=== PATIENT | female | born 1970 | race Two or more races ===

== ENCOUNTER 2018-08-19 22:44 | Emergency (ER) | payer SELFPAY | END 2018-08-19 23:18 | disposition left against medical advice (07) | LOC: ER 23:02 | DX: M54.9 Dorsalgia, unspecified (principal); Z53.21 Procedure and treatment not carried out due to patient leaving prior to being seen by health care provider ==

== ENCOUNTER 2022-08-05 16:31 | Inpatient (IN) | payer OTHER ==
[~2022-08-05] VITALS: Ht 162.6 cm; Wt 69.7 kg
[2022-08-05 17:30] LABS: Basophils # (auto) 0 10 ^3/uL (0-0.2); Eosinophils # (auto) 0 10 ^3/uL (0-0.8)
[2022-08-05 17:32] LABS: Basophils % (auto) 0.1 % (0.0-2.0); Eosinophils % (auto) 0.1 % (0.0-7.0); Hematocrit 32.1 % (36.0-46.0); Hemoglobin 9.7 g/dL (12.2-16.2); Lymphocytes # (auto) 0.9 10 ^3/uL (0.4-5.4); Lymphocytes % (auto) 5.5 % (10.0-50.0); Mean Corpuscular Hemoglobin 19.3 pg (28.0-32.0); Mean Corpuscular Hgb Conc. 30.3 g/dL (32.0-36.0); Mean Corpuscular Volume 63.8 fL (80.0-100.0); Monocytes # (auto) 0.5 10 ^3/uL (0-1.3); Monocytes % (auto) 3.4 % (0.0-12.0); Neutrophils # (auto) 14.7 10 ^3/uL (1.6-8.6); Neutrophils % (auto) 90.9 % (37.0-80.0); Red Blood Cells 5.04 10^6/uL (4.0-5.20); White Blood Cell 16.1 10^3/uL (4.4-10.8)
[2022-08-05 17:43] LABS: Red Cell Distribution Width 23.9 % (11.8-14.3)
[2022-08-05 17:47] LABS: Albumin 1.8 g/dL (3.4-5.0); Potassium 3.6 mmol/L (3.5-5.1)
[2022-08-05 17:51] LABS: Bilirubin, Total 0.5 mg/dL (0.2-1.0); Total Protein 7.7 g/dL (6.4-8.2)
[2022-08-05] MEDS ORDERED: LACTATED RINGER'S 2,300 ML IV ONE (20:00)
[2022-08-05] MEDS ORDERED: PIPERACILLIN-TAZO 4.5GM 100 ML IV ONE (20:15)
[2022-08-05] MEDS ORDERED: VANCOMYCIN 1GM/250ML 250 ML IV ONE (20:45)
[2022-08-05 23:02] LABS: Blood Alcohol < 3.0 mg/dL (0-5); Lipase 96 U/L (73-393)
[2022-08-06] MEDS ORDERED: InsuLIN R (HUMAN) 100 UNITS in SODIUM CHL 0.9% 99 ML IV SCH (01:45)
[2022-08-06] MEDS ORDERED: DEXTROSE (50%) 50ML SYRG IV PRN ×3 (01:45→15:15)
[2022-08-06] MEDS ORDERED: INSULIN LANTUS (GLARGINE) 1 /0.01ml (100units/ml) SC ONE (01:45)
[2022-08-06 01:59] LABS: Basophils # (auto) 0 10 ^3/uL (0-0.2); Basophils % (auto) 0.1 % (0.0-2.0); Eosinophils # (auto) 0 10 ^3/uL (0-0.8); Hemoglobin 8.6 g/dL (12.2-16.2); Lymphocytes # (auto) 0.7 10 ^3/uL (0.4-5.4); Lymphocytes % (auto) 5.4 % (10.0-50.0); Monocytes # (auto) 0.8 10 ^3/uL (0-1.3); Neutrophils # (auto) 12.1 10 ^3/uL (1.6-8.6); Nucleated Red Blood Cells % 0.1 %; White Blood Cell 13.7 10^3/uL (4.4-10.8)
[2022-08-06 02:01] LABS: Hematocrit 28.4 % (36.0-46.0); Mean Corpuscular Hemoglobin 19.3 pg (28.0-32.0); Mean Corpuscular Hgb Conc. 30.2 g/dL (32.0-36.0); Monocytes % (auto) 6.1 % (0.0-12.0); Neutrophils % (auto) 88.4 % (37.0-80.0); Red Blood Cells 4.43 10^6/uL (4.0-5.20)
[2022-08-06] MEDS ORDERED: D5W/SOD CHLO 0.9% 1,000 ML IV ONE (02:15)
[2022-08-06 02:17] LABS: Calcium 9.5 mg/dL (8.5-10.1); Magnesium 2.2 mg/dL (1.6-2.6); Potassium 3.3 mmol/L (3.5-5.1)
[2022-08-06 02:20] LABS: BUN/Creatinine Ratio 39.1; Phosphorus 3.7 mg/dL (2.5-4.90)
[2022-08-06 02:28] LABS: Red Cell Distribution Width 23.6 % (11.8-14.3)
[2022-08-06] MEDS ORDERED: InsuLIN REG 1unit/0.01ml Soln (100units/ml) IV ONE (02:30)
[2022-08-06] MEDS ORDERED: ACETAMINOPHEN 325 MG TAB PO PRN (03:00)
[2022-08-06] MEDS ORDERED: ACCU-CHEK COMFORT CURVE STRIP VI SCH (03:00)
[2022-08-06] MEDS ORDERED: DOCUSATE SOD 100 MG CAP PO PRN (03:00)
[2022-08-06] MEDS ORDERED: ONDANSETRON HCL 4 MG/2 ML VIAL IV PRN (03:00)
[2022-08-06] MEDS: ACCU-CHEK COMFORT CURVE STRIP VI SCH ×8 (04:03→21:58)
[2022-08-06] MEDS: InsuLIN REG 1unit/0.01ml Soln (100units/ml) SC SCH ×8 (04:03→22:16)
[2022-08-06] MEDS: SODIUM CHLORIDE 0.9% 1,000 ML IV SCH ×4 (04:05→14:59)
[2022-08-06] MEDS: POTASSIUM CHL 20MEQ/100ML 100 ML IV SCH ×2 (04:06→05:45)
[2022-08-06] MEDS ORDERED: NITROGLYCERIN 0.4 MG SL TAB SL PRN (04:45)
[2022-08-06] MEDS: MORPHINE SULFATE INJ 2 MG/ml SYRG IV PRN ×2 (04:45→21:57)
[2022-08-06] MEDS ORDERED: MORPHINE SULFATE INJ 2 MG/ml SYRG IV PRN (04:45)
[2022-08-06] MEDS: HYDROcodone-ACET 5/325MG TAB PO PRN (05:35)
[2022-08-06 05:39] LABS: Basophils # (auto) 0 10 ^3/uL (0-0.2); Eosinophils # (auto) 0 10 ^3/uL (0-0.8); Hematocrit 28.6 % (36.0-46.0); Monocytes # (auto) 0.6 10 ^3/uL (0-1.3); Monocytes % (auto) 4.2 % (0.0-12.0); Neutrophils # (auto) 13.4 10 ^3/uL (1.6-8.6); White Blood Cell 14.7 10^3/uL (4.4-10.8)
[2022-08-06] MEDS ORDERED: SODIUM CHLORIDE 0.9% 1,000 ML IV SCH (05:45)
[2022-08-06 05:52] LABS: Albumin 1.7 g/dL (3.4-5.0); Calcium 9.1 mg/dL (8.5-10.1); Potassium 3.2 mmol/L (3.5-5.1)
[2022-08-06 05:55] LABS: BUN/Creatinine Ratio 41.2
[2022-08-06 05:58] LABS: Bilirubin, Total 0.4 mg/dL (0.2-1.0)
[2022-08-06 06:02] LABS: Hemoglobin 8.8 g/dL (12.2-16.2); Lymphocytes # (auto) 0.7 10 ^3/uL (0.4-5.4); Lymphocytes % (auto) 4.5 % (10.0-50.0); Mean Corpuscular Hemoglobin 19.5 pg (28.0-32.0); Mean Corpuscular Hgb Conc. 30.9 g/dL (32.0-36.0); Neutrophils % (auto) 91.3 % (37.0-80.0); Red Blood Cells 4.54 10^6/uL (4.0-5.20); Red Cell Distribution Width 22.8 % (11.8-14.3)
[2022-08-06] MEDS: hydrALAZINE HCL 10 MG TAB PO SCH ×3 (06:08→21:57)
[2022-08-06] MEDS ORDERED: VANCOMYCIN PER PHARMACY 0 MG IV SCH (07:45)
[2022-08-06 08:24] LABS: Calcium 9.7 mg/dL (8.5-10.1); Potassium 3.1 mmol/L (3.5-5.1)
[2022-08-06 08:26] LABS: BUN/Creatinine Ratio 39.1
[2022-08-06] MEDS ORDERED: HEPARIN SODIUM (PORCINE) 5000 UNITS/ML 1ML VIAL SC SCH (10:00)
[2022-08-06] MEDS ORDERED: FAMOTIDINE (10MG/ML) 2ML VL IV SCH (10:00)
[2022-08-06] MEDS: METOPROLOL TARTRATE 25 MG TAB PO SCH ×2 (10:33→20:33)
[2022-08-06] MEDS: cefTRIAXone 1GM/50ML D5W 50 ML IV SCH (10:34)
[2022-08-06] MEDS: ALBUMIN 25% 100 ML IV SCH ×2 (10:35→13:22)
[2022-08-06 13:01] LABS: Alcohol, Urine < 3.0 mg/dL (0-10); Amphetamine Screen, Urine NEGATIVE (NEGATIVE); Barbiturate Scree,Urine NEGATIVE (NEGATIVE); Cannabinoid Screen, Urine POSITIVE (NEGATIVE)
[2022-08-06 13:04] LABS: Protein, Urine 189.9 mg/dL (0.0-11.9)
[2022-08-06 13:12] LABS: Benzodiazephine Screen, Urine NEGATIVE (NEGATIVE); Cocaine Screen, Urine NEGATIVE (NEGATIVE); Opiate Scree,Urine NEGATIVE (NEGATIVE); Phencyclidine Screen, Urine NEGATIVE (NEGATIVE)
[2022-08-06] MEDS ORDERED: ALBUMIN 25% 100 ML IV SCH (14:00)
[2022-08-06 14:04] LABS: BUN/Creatinine Ratio 45.6; Calcium 9.7 mg/dL (8.5-10.1)
[2022-08-06 14:26] LABS: Potassium 2.9 mmol/L (3.5-5.1)
[2022-08-06] MEDS: POTASSIUM EFFERVESENT TAB 25 MEQ PO SCH ×3 (15:04→21:57)
[2022-08-06 15:10] LABS: Urine Bacteria NONE SEEN /hpf (None Seen); Urine Blood TRACE /uL (Negative); Urine Specific Gravity 1.019 (1.001-1.035); Urine WBC 7 /hpf (0 - 5)
[2022-08-06] MEDS ORDERED: VANCOMYCIN 1GM/250ML 250 ML IV SCH (17:00)
[2022-08-06] MEDS ORDERED: InsuLIN REG 1unit/0.01ml Soln (100units/ml) SC SCH (17:00)
[2022-08-06 20:30] LABS: Calcium 9.8 mg/dL (8.5-10.1); Potassium 3.3 mmol/L (3.5-5.1)
[2022-08-06] MEDS: SOD CHL 0.45% 1,000 ML IV SCH (21:48)
[2022-08-07] MEDS ORDERED: LABETALOL HCL 5 MG/ML 4ML SYRINGE IV ONE (02:15)
[2022-08-07 05:50] VITALS: BP 140/79
[2022-08-07] MEDS: SOD CHL 0.45% 1,000 ML IV SCH ×2 (06:23→21:17)
[2022-08-07] MEDS: ACCU-CHEK COMFORT CURVE STRIP VI SCH ×4 (06:24→22:26)
[2022-08-07] MEDS: hydrALAZINE HCL 10 MG TAB PO SCH ×3 (06:26→22:25)
[2022-08-07] MEDS: InsuLIN REG 1unit/0.01ml Soln (100units/ml) SC SCH ×4 (06:29→22:27)
[2022-08-07 06:40] VITALS: BP 140/79
[2022-08-07 06:44] LABS: Calcium 9.1 mg/dL (8.5-10.1); Potassium 3.7 mmol/L (3.5-5.1)
[2022-08-07 06:47] LABS: Albumin 2.1 g/dL (3.4-5.0); BUN/Creatinine Ratio 34.5; Magnesium 2.1 mg/dL (1.6-2.6)
[2022-08-07 06:49] LABS: Eosinophils # (auto) 0 10 ^3/uL (0-0.8); Lymphocytes # (auto) 0.9 10 ^3/uL (0.4-5.4)
[2022-08-07 06:52] LABS: Basophils # (auto) 0 10 ^3/uL (0-0.2); Basophils % (auto) 0.1 % (0.0-2.0); Eosinophils % (auto) 0.2 % (0.0-7.0); Hematocrit 26.5 % (36.0-46.0); Lymphocytes % (auto) 6.7 % (10.0-50.0); Mean Corpuscular Hemoglobin 19.2 pg (28.0-32.0); Mean Corpuscular Hgb Conc. 30.3 g/dL (32.0-36.0); Mean Corpuscular Volume 63.4 fL (80.0-100.0); Monocytes # (auto) 0.9 10 ^3/uL (0-1.3); Monocytes % (auto) 6.6 % (0.0-12.0); Neutrophils # (auto) 11.2 10 ^3/uL (1.6-8.6); Neutrophils % (auto) 86.4 % (37.0-80.0); Red Blood Cells 4.18 10^6/uL (4.0-5.20)
[2022-08-07 06:54] LABS: Bilirubin, Total 0.6 mg/dL (0.2-1.0); Phosphorus 2.1 mg/dL (2.5-4.90); Total Protein 6.1 g/dL (6.4-8.2)
[2022-08-07 06:55] LABS: Red Cell Distribution Width 23.3 % (11.8-14.3)
[2022-08-07 07:04] LABS: % Iron Saturation 13.4 % (15-50)
[2022-08-07 07:34] LABS: Ferritin 107.5 ng/mL (10-322)
[2022-08-07] MEDS: cefTRIAXone 1GM/50ML D5W 50 ML IV SCH (08:30)
[2022-08-07] MEDS: METOPROLOL TARTRATE 25 MG TAB PO SCH ×2 (08:30→22:25)
[2022-08-07 09:00] VITALS: BP 171/100
[2022-08-07] MEDS ORDERED: INSULIN LANTUS (GLARGINE) 1 /0.01ml (100units/ml) SC SCH ×2 (10:00)
[2022-08-07 13:00] VITALS: BP 170/89
[2022-08-07 17:00] VITALS: BP 167/92
[2022-08-07 17:14] LABS: Urine Bacteria FEW /hpf (None Seen); Urine Blood 2+ /uL (Negative); Urine Mucus FEW (None Seen); Urine Specific Gravity 1.019 (1.001-1.035); Urine WBC 9 /hpf (0 - 5)
[2022-08-07 22:00] VITALS: BP 164/96
[2022-08-07] MEDS ORDERED: dilTIAZem 25 MG/5 ML VIAL IV ONE (22:30)
[2022-08-08] MEDS: MORPHINE SULFATE INJ 2 MG/ml SYRG IV PRN ×3 (00:55→21:57)
[2022-08-08 05:00] VITALS: BP 154/59
[2022-08-08 06:12] LABS: Basophils # (auto) 0 10 ^3/uL (0-0.2); Basophils % (auto) 0.1 % (0.0-2.0); Eosinophils # (auto) 0 10 ^3/uL (0-0.8); Hemoglobin 8.6 g/dL (12.2-16.2); Monocytes # (auto) 0.8 10 ^3/uL (0-1.3)
[2022-08-08 06:14] LABS: Eosinophils % (auto) 0.3 % (0.0-7.0); Hematocrit 27.8 % (36.0-46.0); Lymphocytes % (auto) 6.9 % (10.0-50.0); Mean Corpuscular Hemoglobin 19.4 pg (28.0-32.0); Mean Corpuscular Hgb Conc. 30.9 g/dL (32.0-36.0); Mean Corpuscular Volume 62.8 fL (80.0-100.0); Monocytes % (auto) 5.3 % (0.0-12.0); Neutrophils % (auto) 87.4 % (37.0-80.0); Red Blood Cells 4.43 10^6/uL (4.0-5.20); White Blood Cell 14.8 10^3/uL (4.4-10.8)
[2022-08-08] MEDS: hydrALAZINE HCL 10 MG TAB PO SCH (06:26)
[2022-08-08] MEDS: ACCU-CHEK COMFORT CURVE STRIP VI SCH ×4 (06:26→22:37)
[2022-08-08] MEDS: InsuLIN REG 1unit/0.01ml Soln (100units/ml) SC SCH ×3 (06:27→17:41)
[2022-08-08 06:34] LABS: Potassium 4.1 mmol/L (3.5-5.1)
[2022-08-08 06:42] LABS: Albumin 1.8 g/dL (3.4-5.0); BUN/Creatinine Ratio 34.2; Calcium 8.7 mg/dL (8.5-10.1)
[2022-08-08 06:45] LABS: Bilirubin, Total 0.4 mg/dL (0.2-1.0); Phosphorus 2.5 mg/dL (2.5-4.90); Total Protein 5.3 g/dL (6.4-8.2)
[2022-08-08] MEDS: cefTRIAXone 1GM/50ML D5W 50 ML IV SCH (08:16)
[2022-08-08] MEDS: METOPROLOL TARTRATE 25 MG TAB PO SCH (08:16)
[2022-08-08 09:00] VITALS: BP 155/90
[2022-08-08] MEDS ORDERED: INSULIN LANTUS (GLARGINE) 1 /0.01ml (100units/ml) SC SCH (10:00)
[2022-08-08] MEDS ORDERED: amLODIPine BESYLATE 5 MG TAB PO ONE (11:30)
[2022-08-08] MEDS ORDERED: PIPERACILLIN-TAZOB 3.375GM 100 ML IV SCH (12:00)
[2022-08-08] MEDS: SOD CHL 0.45% 1,000 ML IV SCH ×2 (12:03→22:20)
[2022-08-08 13:00] VITALS: BP 148/80
[2022-08-08] MEDS: HYDROcodone-ACET 5/325MG TAB PO PRN (14:20)
[2022-08-08 16:46] VITALS: BP 126/83
[2022-08-08 20:10] VITALS: BP 146/80
[2022-08-08] MEDS: PIPERACILLIN-TAZOB 3.375GM 100 ML IV SCH (21:56)
[2022-08-08 22:00] VITALS: BP 146/80
[2022-08-09] MEDS: MORPHINE SULFATE INJ 2 MG/ml SYRG IV PRN ×3 (02:20→13:14)
[2022-08-09] MEDS: PIPERACILLIN-TAZOB 3.375GM 100 ML IV SCH ×4 (04:56→20:00)
[2022-08-09 06:00] VITALS: BP 160/89
[2022-08-09] MEDS: ACCU-CHEK COMFORT CURVE STRIP VI SCH ×3 (06:18→18:51)
[2022-08-09] MEDS: InsuLIN REG 1unit/0.01ml Soln (100units/ml) SC SCH ×3 (06:19→18:51)
[2022-08-09 08:00] VITALS: BP 156/78
[2022-08-09 08:02] LABS: Basophils # (auto) 0 10 ^3/uL (0-0.2); Eosinophils # (auto) 0.1 10 ^3/uL (0-0.8); Hemoglobin 8.3 g/dL (12.2-16.2); Monocytes # (auto) 0.6 10 ^3/uL (0-1.3)
[2022-08-09 08:04] LABS: Basophils % (auto) 0.3 % (0.0-2.0); Eosinophils % (auto) 0.5 % (0.0-7.0); Hematocrit 26.3 % (36.0-46.0); Lymphocytes % (auto) 6.7 % (10.0-50.0); Mean Corpuscular Hemoglobin 19.9 pg (28.0-32.0); Mean Corpuscular Hgb Conc. 31.7 g/dL (32.0-36.0); Mean Corpuscular Volume 62.9 fL (80.0-100.0); Monocytes % (auto) 3.7 % (0.0-12.0); Neutrophils # (auto) 13.6 10 ^3/uL (1.6-8.6); Neutrophils % (auto) 88.8 % (37.0-80.0); Red Blood Cells 4.17 10^6/uL (4.0-5.20); White Blood Cell 15.3 10^3/uL (4.4-10.8)
[2022-08-09 08:07] LABS: Albumin 1.6 g/dL (3.4-5.0); Calcium 8.3 mg/dL (8.5-10.1); Potassium 3.5 mmol/L (3.5-5.1); Red Cell Distribution Width 22.7 % (11.8-14.3)
[2022-08-09 08:11] LABS: BUN/Creatinine Ratio 28.9; Bilirubin, Total 0.4 mg/dL (0.2-1.0); Total Protein 5.6 g/dL (6.4-8.2)
[2022-08-09] MEDS: amLODIPine BESYLATE 5 MG TAB PO SCH (09:18)
[2022-08-09 09:37] VITALS: BP 156/78
[2022-08-09] MEDS ORDERED: INSULIN LANTUS (GLARGINE) 1 /0.01ml (100units/ml) SC SCH (10:00)
[2022-08-09] MEDS ORDERED: SOD CHL 0.45% 1,000 ML IV SCH (11:00)
[2022-08-09 13:00] VITALS: BP 139/68
[2022-08-09 17:00] VITALS: BP 128/67
[2022-08-09] MEDS ORDERED: MIDAZOLAM HCL 2MG/2ML 2ml VIAL (1mg/ml) ONE (19:18)
[2022-08-09] MEDS ORDERED: fentaNYL CITRATE 100 MCG/2 ML VL ONE ×3 (19:18→23:25)
[2022-08-09] MEDS ORDERED: HYDROmorphone HCL 2 MG/ML VL/or syr ONE (19:18)
[2022-08-09] MEDS ORDERED: DexAMETHasone SOD PHOS 10MG/1ML VIAL INJ ONE (19:19)
[2022-08-09] MEDS ORDERED: GLYCOPYRROLATE 0.2 MG/ML 1ML VIAL ONE (19:19)
[2022-08-09] MEDS ORDERED: ONDANSETRON HCL 4 MG/2 ML VIAL ONE (19:19)
[2022-08-09] MEDS ORDERED: ePHEDrine SULFATE 50 MG/ML AMP ONE (19:19)
[2022-08-09] MEDS ORDERED: LIDOCAINE 2% (LOCAL ANESTH.) PF 5ml SDV ONE (19:19)
[2022-08-09] MEDS ORDERED: PROPOFOL 10 MG/ML 20 ML IV ONE ×3 (19:19→22:14)
[2022-08-09] MEDS: VANCOMYCIN HCL 1000 MG VL ONE ×2 (20:00→21:15)
[2022-08-09] MEDS: GENTAMICIN SULF 80 MG/2 ML VIAL ONE ×2 (20:00→21:15)
[2022-08-09] MEDS ORDERED: ROCURONIUM 10MG/ML 10ML VIAL IV ONE (20:47)
[2022-08-09] MEDS ORDERED: ceFAZolin 1GM VL ONE (20:56)
[2022-08-09] MEDS ORDERED: MINERAL OIL TOPICAL 10ml TOP ONE (21:37)
[2022-08-09] MEDS ORDERED: SUGAMMADEX 200mg/2ml Vial (100MG/ML) IV ONE ×2 (23:05→23:25)
[2022-08-09] MEDS ORDERED: MILK OF MAGNESIA 30ML SUSP PO PRN (23:15)
[2022-08-09] MEDS ORDERED: NITROGLYCERIN 0.4 MG SL TAB SL PRN (23:15)
[2022-08-09] MEDS ORDERED: DOCUSATE SOD 100 MG CAP PO PRN (23:15)
[2022-08-09] MEDS ORDERED: DexAMETHasone SOD PHOS 10MG/1ML VIAL INJ IV ONE (23:15)
[2022-08-10] VITALS (23 sets, daily range): BP systolic 119–159; BP diastolic 73–82
[2022-08-10] MEDS ORDERED: InsuLIN REG 1unit/0.01ml Soln (100units/ml) ONE (00:08)
[2022-08-10] MEDS ORDERED: InsuLIN REG 1unit/0.01ml Soln (100units/ml) SC ONE ×2 (00:09→00:15)
[2022-08-10] MEDS ORDERED: ONDANSETRON HCL 4 MG/2 ML VIAL IV PRN (00:15)
[2022-08-10] MEDS ORDERED: ACCU-CHEK COMFORT CURVE STRIP VI ONE (00:15)
[2022-08-10] MEDS ORDERED: HYDROmorphone HCL 2 MG/ML VL/or syr IV PRN (00:15)
[2022-08-10] MEDS: PIPERACILLIN-TAZOB 3.375GM 100 ML IV SCH ×2 (02:00→08:32)
[2022-08-10] MEDS: LACTATED RINGER'S 1,000 ML IV SCH ×2 (02:45→06:26)
[2022-08-10] MEDS: HYDROcodone-ACET 5/325MG TAB PO PRN ×3 (03:16→13:50)
[2022-08-10] MEDS: ACCU-CHEK COMFORT CURVE STRIP VI SCH ×6 (04:25→20:00)
[2022-08-10] MEDS: InsuLIN REG 1unit/0.01ml Soln (100units/ml) SC SCH ×5 (04:26→21:06)
[2022-08-10] MEDS: CYCLOBENZAPRINE HCL 10 MG TAB PO SCH ×3 (05:06→21:06)
[2022-08-10 06:44] LABS: Albumin 1.5 g/dL (3.4-5.0); Calcium 7.7 mg/dL (8.5-10.1); Potassium 4.5 mmol/L (3.5-5.1)
[2022-08-10 06:47] LABS: BUN/Creatinine Ratio 27.4; Bilirubin, Total 0.3 mg/dL (0.2-1.0); Total Protein 4.7 g/dL (6.4-8.2)
[2022-08-10 06:49] LABS: Basophils # (auto) 0 10 ^3/uL (0-0.2); Eosinophils # (auto) 0 10 ^3/uL (0-0.8); Hemoglobin 12.8 g/dL (12.2-16.2); Monocytes # (auto) 0.3 10 ^3/uL (0-1.3); Monocytes % (auto) 1.8 % (0.0-12.0)
[2022-08-10 06:52] LABS: Basophils % (auto) 0.1 % (0.0-2.0); Hematocrit 39.2 % (36.0-46.0); Lymphocytes # (auto) 0.4 10 ^3/uL (0.4-5.4); Lymphocytes % (auto) 2.6 % (10.0-50.0); Mean Corpuscular Hemoglobin 25.1 pg (28.0-32.0); Mean Corpuscular Hgb Conc. 32.7 g/dL (32.0-36.0); Mean Corpuscular Volume 76.8 fL (80.0-100.0); Neutrophils # (auto) 14.1 10 ^3/uL (1.6-8.6); Neutrophils % (auto) 95.5 % (37.0-80.0); White Blood Cell 14.8 10^3/uL (4.4-10.8)
[2022-08-10 07:34] LABS: Red Cell Distribution Width 28.5 % (11.8-14.3)
[2022-08-10] MEDS: amLODIPine BESYLATE 5 MG TAB PO SCH (09:53)
[2022-08-10] MEDS: DOCUSATE SOD 100 MG CAP PO SCH ×2 (09:53→21:07)
[2022-08-10] MEDS: INSULIN LANTUS (GLARGINE) 1 /0.01ml (100units/ml) SC SCH (09:54)
[2022-08-10] MEDS: CEFTRIAXONE SODIUM 2 GM in D5W 5% 50 ML IV SCH (10:45)
[2022-08-10] MEDS ORDERED: VANCOMYCIN PER PHARMACY 0 MG IV SCH (10:45)
[2022-08-10] MEDS ORDERED: VANCOMYCIN 1GM/250ML 250 ML IV ONE (11:15)
[2022-08-10] MEDS: MORPHINE SULFATE INJ 2 MG/ml SYRG IV PRN ×3 (12:58→23:26)
[2022-08-10] MEDS ORDERED: LABETALOL HCL 200 MG TAB PO PRN (16:00)
[2022-08-10] MEDS: Pro-Stat SF 30ml Vanilla PO SCH (18:00)
[2022-08-11] MEDS: ACCU-CHEK COMFORT CURVE STRIP VI SCH ×6 (00:06→20:09)
[2022-08-11] MEDS: InsuLIN REG 1unit/0.01ml Soln (100units/ml) SC SCH ×7 (00:07→23:21)
[2022-08-11] MEDS: LACTATED RINGER'S 1,000 ML IV SCH ×3 (00:25→18:19)
[2022-08-11] MEDS: MORPHINE SULFATE INJ 2 MG/ml SYRG IV PRN ×4 (03:34→20:18)
[2022-08-11] MEDS: HYDROcodone-ACET 5/325MG TAB PO PRN ×4 (04:54→22:47)
[2022-08-11] MEDS: VANCOMYCIN 1GM/250ML 250 ML IV SCH ×2 (04:56→19:57)
[2022-08-11 05:00] VITALS: BP 148/85
[2022-08-11] MEDS: CYCLOBENZAPRINE HCL 10 MG TAB PO SCH ×3 (05:01→22:43)
[2022-08-11 06:31] LABS: Basophils # (auto) 0 10 ^3/uL (0-0.2); Basophils % (auto) 0.3 % (0.0-2.0); Eosinophils # (auto) 0 10 ^3/uL (0-0.8); Hemoglobin 12.2 g/dL (12.2-16.2); Monocytes # (auto) 0.7 10 ^3/uL (0-1.3); Red Blood Cells 4.86 10^6/uL (4.0-5.20)
[2022-08-11 06:32] LABS: Eosinophils % (auto) 0.4 % (0.0-7.0); Hematocrit 36.6 % (36.0-46.0); Lymphocytes # (auto) 1.1 10 ^3/uL (0.4-5.4); Lymphocytes % (auto) 8.3 % (10.0-50.0); Mean Corpuscular Hgb Conc. 33.2 g/dL (32.0-36.0); Mean Corpuscular Volume 75.3 fL (80.0-100.0); Monocytes % (auto) 5.5 % (0.0-12.0); Neutrophils # (auto) 10.9 10 ^3/uL (1.6-8.6); Neutrophils % (auto) 85.5 % (37.0-80.0); White Blood Cell 12.7 10^3/uL (4.4-10.8)
[2022-08-11 06:44] LABS: Red Cell Distribution Width 28.1 % (11.8-14.3)
[2022-08-11 06:58] LABS: Calcium 8.6 mg/dL (8.5-10.1); Potassium 3.8 mmol/L (3.5-5.1)
[2022-08-11 07:01] LABS: Albumin 1.4 g/dL (3.4-5.0); BUN/Creatinine Ratio 31.7
[2022-08-11 07:04] LABS: Bilirubin, Total 0.3 mg/dL (0.2-1.0); Total Protein 5.1 g/dL (6.4-8.2)
[2022-08-11 08:30] VITALS: BP 141/78
[2022-08-11] MEDS: Pro-Stat SF 30ml Vanilla PO SCH ×2 (08:41→17:41)
[2022-08-11] MEDS: amLODIPine BESYLATE 5 MG TAB PO SCH (09:35)
[2022-08-11] MEDS: DOCUSATE SOD 100 MG CAP PO SCH ×2 (09:35→22:43)
[2022-08-11] MEDS: INSULIN LANTUS (GLARGINE) 1 /0.01ml (100units/ml) SC SCH (09:36)
[2022-08-11] MEDS: CEFTRIAXONE SODIUM 2 GM in D5W 5% 50 ML IV SCH (11:15)
[2022-08-11 12:49] VITALS: BP 147/81
[2022-08-11 17:00] VITALS: BP 143/90
[2022-08-11 22:04] VITALS: BP 137/82
[2022-08-12] MEDS: ACCU-CHEK COMFORT CURVE STRIP VI SCH ×6 (00:27→20:50)
[2022-08-12] MEDS: MORPHINE SULFATE INJ 2 MG/ml SYRG IV PRN ×6 (02:35→20:44)
[2022-08-12] MEDS: LACTATED RINGER'S 1,000 ML IV SCH ×2 (03:43→15:41)
[2022-08-12] MEDS: InsuLIN REG 1unit/0.01ml Soln (100units/ml) SC SCH ×5 (03:55→20:52)
[2022-08-12 04:56] LABS: Basophils # (auto) 0 10 ^3/uL (0-0.2); Eosinophils # (auto) 0.1 10 ^3/uL (0-0.8); Monocytes # (auto) 0.7 10 ^3/uL (0-1.3); White Blood Cell 10.6 10^3/uL (4.4-10.8)
[2022-08-12 04:58] LABS: Basophils % (auto) 0.4 % (0.0-2.0); Eosinophils % (auto) 0.7 % (0.0-7.0); Hematocrit 35.2 % (36.0-46.0); Hemoglobin 12.1 g/dL (12.2-16.2); Lymphocytes # (auto) 0.9 10 ^3/uL (0.4-5.4); Lymphocytes % (auto) 8.4 % (10.0-50.0); Mean Corpuscular Hgb Conc. 34.4 g/dL (32.0-36.0); Mean Corpuscular Volume 75.6 fL (80.0-100.0); Monocytes % (auto) 6.4 % (0.0-12.0); Neutrophils # (auto) 8.9 10 ^3/uL (1.6-8.6); Neutrophils % (auto) 84.1 % (37.0-80.0); Red Blood Cells 4.65 10^6/uL (4.0-5.20)
[2022-08-12 05:00] VITALS: BP 141/81
[2022-08-12 05:14] LABS: Red Cell Distribution Width 28.3 % (11.8-14.3)
[2022-08-12 05:19] LABS: Albumin 1.4 g/dL (3.4-5.0); Calcium 8.6 mg/dL (8.5-10.1); Potassium 3.9 mmol/L (3.5-5.1)
[2022-08-12 05:22] LABS: BUN/Creatinine Ratio 29.1; Bilirubin, Total 0.4 mg/dL (0.2-1.0); Total Protein 5.2 g/dL (6.4-8.2)
[2022-08-12] MEDS: CYCLOBENZAPRINE HCL 10 MG TAB PO SCH ×3 (05:51→22:42)
[2022-08-12] MEDS: Pro-Stat SF 30ml Vanilla PO SCH ×2 (08:10→17:52)
[2022-08-12 09:00] VITALS: BP 133/76
[2022-08-12] MEDS: HYDROcodone-ACET 5/325MG TAB PO PRN ×3 (09:03→18:00)
[2022-08-12] MEDS: DOCUSATE SOD 100 MG CAP PO SCH ×2 (10:47→22:42)
[2022-08-12] MEDS: CEFTRIAXONE SODIUM 2 GM in D5W 5% 50 ML IV SCH (10:47)
[2022-08-12] MEDS: amLODIPine BESYLATE 5 MG TAB PO SCH (10:48)
[2022-08-12] MEDS: INSULIN LANTUS (GLARGINE) 1 /0.01ml (100units/ml) SC SCH (11:01)
[2022-08-12] MEDS: VANCOMYCIN 1GM/250ML 250 ML IV SCH (11:58)
[2022-08-13] MEDS: ACCU-CHEK COMFORT CURVE STRIP VI SCH ×6 (00:32→22:34)
[2022-08-13] MEDS: InsuLIN REG 1unit/0.01ml Soln (100units/ml) SC SCH ×6 (00:37→22:33)
[2022-08-13] MEDS: LACTATED RINGER'S 1,000 ML IV SCH (00:45)
[2022-08-13] MEDS: HYDROcodone-ACET 5/325MG TAB PO PRN ×2 (01:18→09:39)
[2022-08-13] MEDS: VANCOMYCIN 1GM/250ML 250 ML IV SCH (01:46)
[2022-08-13 05:00] VITALS: BP 149/86
[2022-08-13] MEDS: CYCLOBENZAPRINE HCL 10 MG TAB PO SCH ×3 (05:52→22:25)
[2022-08-13 06:38] LABS: Basophils # (auto) 0 10 ^3/uL (0-0.2); Basophils % (auto) 0.3 % (0.0-2.0); Mean Corpuscular Hemoglobin 25.9 pg (28.0-32.0); Monocytes % (auto) 5.5 % (0.0-12.0); Nucleated Red Blood Cells % 0.1 %
[2022-08-13] MEDS: MORPHINE SULFATE INJ 2 MG/ml SYRG IV PRN ×2 (06:38→22:35)
[2022-08-13 06:40] LABS: Albumin 1.3 g/dL (3.4-5.0); Calcium 8.6 mg/dL (8.5-10.1); Eosinophils # (auto) 0 10 ^3/uL (0-0.8); Eosinophils % (auto) 0.4 % (0.0-7.0); Hematocrit 33.8 % (36.0-46.0); Hemoglobin 11.6 g/dL (12.2-16.2); Lymphocytes # (auto) 0.9 10 ^3/uL (0.4-5.4); Lymphocytes % (auto) 8.6 % (10.0-50.0); Mean Corpuscular Hgb Conc. 34.2 g/dL (32.0-36.0); Mean Corpuscular Volume 75.7 fL (80.0-100.0); Monocytes # (auto) 0.5 10 ^3/uL (0-1.3); Neutrophils # (auto) 8.5 10 ^3/uL (1.6-8.6); Neutrophils % (auto) 85.2 % (37.0-80.0); Red Blood Cells 4.46 10^6/uL (4.0-5.20)
[2022-08-13 06:44] LABS: BUN/Creatinine Ratio 26.3; Bilirubin, Total 0.4 mg/dL (0.2-1.0)
[2022-08-13 07:10] LABS: Red Cell Distribution Width 28.1 % (11.8-14.3)
[2022-08-13] MEDS: Pro-Stat SF 30ml Vanilla PO SCH ×2 (08:00→18:00)
[2022-08-13 08:36] VITALS: BP 142/77
[2022-08-13] MEDS: INSULIN LANTUS (GLARGINE) 1 /0.01ml (100units/ml) SC SCH (10:30)
[2022-08-13] MEDS: CEFTRIAXONE SODIUM 2 GM in D5W 5% 50 ML IV SCH (10:36)
[2022-08-13] MEDS: amLODIPine BESYLATE 5 MG TAB PO SCH (10:36)
[2022-08-13] MEDS: DOCUSATE SOD 100 MG CAP PO SCH (10:36)
[2022-08-13] MEDS ORDERED: POLYETHYLENE GLYCOL 17 GM PWDR PO PRN (11:00)
[2022-08-13] MEDS ORDERED: SENNA 8.6 MG TAB PO PRN (11:00)
[2022-08-13] MEDS ORDERED: DEXTROSE (50%) 50ML SYRG IV PRN (11:30)
[2022-08-13] MEDS ORDERED: LOSARTAN POTASSIUM 25 MG TAB PO ONE (11:30)
[2022-08-13 13:00] VITALS: BP 132/72
[2022-08-13] MEDS: ACETAMINOPHEN 325 MG TAB PO SCH ×3 (14:00→22:26)
[2022-08-13] MEDS: HYDROmorphone HCL 2 MG TAB PO PRN (14:46)
[2022-08-13] MEDS: NAFCILLIN SOD 2GM 12 GM in SODIUM CHLORIDE 0.9% 1,000 ML IV SCH (15:00)
[2022-08-13 16:36] VITALS: BP 142/86
[2022-08-13 22:00] VITALS: BP 125/59
[2022-08-13] MEDS: SENNA 8.6 MG TAB PO SCH (22:25)
[2022-08-14] MEDS: MORPHINE SULFATE INJ 2 MG/ml SYRG IV PRN ×3 (04:06→20:44)
[2022-08-14 05:00] VITALS: BP 137/75
[2022-08-14] MEDS: HYDROmorphone HCL 2 MG TAB PO PRN ×3 (06:16→16:56)
[2022-08-14] MEDS: ACETAMINOPHEN 325 MG TAB PO SCH ×3 (06:17→22:16)
[2022-08-14] MEDS: CYCLOBENZAPRINE HCL 10 MG TAB PO SCH ×3 (06:17→22:14)
[2022-08-14] MEDS: ACCU-CHEK COMFORT CURVE STRIP VI SCH ×4 (06:18→22:17)
[2022-08-14] MEDS: InsuLIN REG 1unit/0.01ml Soln (100units/ml) SC SCH ×4 (06:18→22:00)
[2022-08-14] MEDS: Pro-Stat SF 30ml Vanilla PO SCH ×2 (08:00→18:00)
[2022-08-14] MEDS: INSULIN LANTUS (GLARGINE) 1 /0.01ml (100units/ml) SC SCH (08:34)
[2022-08-14 09:04] VITALS: BP 132/73
[2022-08-14] MEDS: amLODIPine BESYLATE 5 MG TAB PO SCH (10:35)
[2022-08-14] MEDS: LOSARTAN POTASSIUM 25 MG TAB PO SCH (10:35)
[2022-08-14 12:36] VITALS: BP 138/82
[2022-08-14] MEDS: NAFCILLIN SOD 2GM 12 GM in SODIUM CHLORIDE 0.9% 1,000 ML IV SCH (13:50)
[2022-08-14 16:54] VITALS: BP 146/83
[2022-08-14 22:00] VITALS: BP 148/85
[2022-08-14] MEDS: SENNA 8.6 MG TAB PO SCH (22:15)
[2022-08-15] MEDS: CYCLOBENZAPRINE HCL 10 MG TAB PO SCH ×3 (06:16→21:24)
[2022-08-15] MEDS: ACETAMINOPHEN 325 MG TAB PO SCH (06:18)
[2022-08-15 06:34] LABS: Basophils # (auto) 0 10 ^3/uL (0-0.2); Basophils % (auto) 0.6 % (0.0-2.0); Eosinophils # (auto) 0.1 10 ^3/uL (0-0.8); Lymphocytes # (auto) 0.7 10 ^3/uL (0.4-5.4)
[2022-08-15] MEDS: ACCU-CHEK COMFORT CURVE STRIP VI SCH ×4 (06:35→21:30)
[2022-08-15] MEDS: InsuLIN REG 1unit/0.01ml Soln (100units/ml) SC SCH ×4 (06:35→21:32)
[2022-08-15 06:36] LABS: Eosinophils % (auto) 0.7 % (0.0-7.0); Hematocrit 33.2 % (36.0-46.0); Hemoglobin 11.1 g/dL (12.2-16.2); Lymphocytes % (auto) 9.8 % (10.0-50.0); Mean Corpuscular Hemoglobin 25.4 pg (28.0-32.0); Mean Corpuscular Hgb Conc. 33.5 g/dL (32.0-36.0); Mean Corpuscular Volume 75.7 fL (80.0-100.0); Monocytes # (auto) 0.3 10 ^3/uL (0-1.3); Monocytes % (auto) 4.6 % (0.0-12.0); Neutrophils # (auto) 6.3 10 ^3/uL (1.6-8.6); Neutrophils % (auto) 84.3 % (37.0-80.0); Red Blood Cells 4.39 10^6/uL (4.0-5.20); White Blood Cell 7.4 10^3/uL (4.4-10.8)
[2022-08-15 06:38] LABS: Red Cell Distribution Width 28.4 % (11.8-14.3)
[2022-08-15 06:53] LABS: Albumin 1.5 g/dL (3.4-5.0); Calcium 8.9 mg/dL (8.5-10.1)
[2022-08-15 06:56] LABS: Bilirubin, Total 0.7 mg/dL (0.2-1.0); Total Protein 5.4 g/dL (6.4-8.2)
[2022-08-15] MEDS: Pro-Stat SF 30ml Vanilla PO SCH ×2 (08:00→18:00)
[2022-08-15] MEDS: INSULIN LANTUS (GLARGINE) 1 /0.01ml (100units/ml) SC SCH (08:03)
[2022-08-15 08:24] LABS: Potassium 3.7 mmol/L (3.5-5.1)
[2022-08-15 09:00] VITALS: BP 143/92
[2022-08-15] MEDS ORDERED: ASPirin 81 mg TAB PO SCH (10:00)
[2022-08-15] MEDS: amLODIPine BESYLATE 5 MG TAB PO SCH (10:21)
[2022-08-15] MEDS: LOSARTAN POTASSIUM 25 MG TAB PO SCH (10:21)
[2022-08-15] MEDS: METOPROLOL TARTRATE 25 MG TAB PO SCH ×2 (10:22→21:30)
[2022-08-15] MEDS: HYDROmorphone HCL 2 MG TAB PO PRN ×2 (10:22→18:30)
[2022-08-15] MEDS: MORPHINE SULFATE INJ 2 MG/ml SYRG IV PRN (12:17)
[2022-08-15 13:00] VITALS: BP 151/93
[2022-08-15] MEDS: NAFCILLIN SOD 2GM 12 GM in SODIUM CHLORIDE 0.9% 1,000 ML IV SCH (13:00)
[2022-08-15] MEDS: ACETAMINOPHEN 500 MG TAB PO SCH ×2 (14:05→21:24)
[2022-08-15] MEDS ORDERED: SENNA 8.6 MG TAB PO PRN (16:45)
[2022-08-15] MEDS ORDERED: POLYETHYLENE GLYCOL 17 GM PWDR PO PRN (16:45)
[2022-08-15 17:00] VITALS: BP 126/70
[2022-08-15] MEDS ORDERED: HEPARIN DRIP/D5W 100UNITS/ML 250 ML IV SCH (17:30)
[2022-08-15 18:04] LABS: Basophils # (auto) 0.1 10 ^3/uL (0-0.2); Hemoglobin 10.6 g/dL (12.2-16.2); Neutrophils # (auto) 5.8 10 ^3/uL (1.6-8.6)
[2022-08-15 18:07] LABS: Eosinophils # (auto) 0 10 ^3/uL (0-0.8); Eosinophils % (auto) 0.5 % (0.0-7.0); Hematocrit 32.3 % (36.0-46.0); Lymphocytes % (auto) 13.8 % (10.0-50.0); Mean Corpuscular Hemoglobin 24.8 pg (28.0-32.0); Mean Corpuscular Hgb Conc. 32.8 g/dL (32.0-36.0); Mean Corpuscular Volume 75.6 fL (80.0-100.0); Monocytes # (auto) 0.4 10 ^3/uL (0-1.3); Monocytes % (auto) 5.7 % (0.0-12.0); Red Blood Cells 4.28 10^6/uL (4.0-5.20); White Blood Cell 7.3 10^3/uL (4.4-10.8)
[2022-08-15 18:27] LABS: INR 1.04 (0.9-1.15); Partial Thromboplastin Time 32.6 sec (24.6-33.4)
[2022-08-15 18:51] LABS: Red Cell Distribution Width 28.1 % (11.8-14.3)
[2022-08-15] MEDS: HEPARIN DRIP/D5W 100UNITS/ML 250 ML IV SCH (20:28)
[2022-08-15] MEDS ORDERED: HEPARIN SODIUM (PORCINE) 5000 UNITS/ML 1ML VIAL IV ONE (20:45)
[2022-08-15] MEDS: SENNA 8.6 MG TAB PO SCH (21:24)
[2022-08-15 22:00] VITALS: BP 140/82
[2022-08-16] MEDS: HYDROmorphone HCL 2 MG TAB PO PRN ×3 (01:25→21:57)
[2022-08-16 02:27] LABS: INR 1.06 (0.9-1.15); Partial Thromboplastin Time 60.2 sec (24.6-33.4)
[2022-08-16] MEDS: MORPHINE SULFATE INJ 2 MG/ml SYRG IV PRN ×3 (03:26→19:25)
[2022-08-16 05:00] VITALS: BP 144/82
[2022-08-16] MEDS: ACETAMINOPHEN 500 MG TAB PO SCH ×3 (05:31→21:57)
[2022-08-16] MEDS: CYCLOBENZAPRINE HCL 10 MG TAB PO SCH ×3 (05:31→21:56)
[2022-08-16 05:55] LABS: Basophils # (auto) 0.1 10 ^3/uL (0-0.2); Eosinophils # (auto) 0.1 10 ^3/uL (0-0.8); Mean Corpuscular Hemoglobin 25.3 pg (28.0-32.0); Monocytes # (auto) 0.4 10 ^3/uL (0-1.3)
[2022-08-16 05:58] LABS: Basophils % (auto) 0.8 % (0.0-2.0); Eosinophils % (auto) 1.1 % (0.0-7.0); Hematocrit 35.6 % (36.0-46.0); Hemoglobin 11.3 g/dL (12.2-16.2); Lymphocytes % (auto) 13.2 % (10.0-50.0); Mean Corpuscular Hgb Conc. 31.6 g/dL (32.0-36.0); Mean Corpuscular Volume 79.9 fL (80.0-100.0); Monocytes % (auto) 5.2 % (0.0-12.0); Neutrophils # (auto) 6.3 10 ^3/uL (1.6-8.6); Neutrophils % (auto) 79.7 % (37.0-80.0); Nucleated Red Blood Cells % 0.1 %; Red Blood Cells 4.46 10^6/uL (4.0-5.20); White Blood Cell 7.9 10^3/uL (4.4-10.8)
[2022-08-16 06:05] LABS: Red Cell Distribution Width 27.8 % (11.8-14.3)
[2022-08-16] MEDS: ACCU-CHEK COMFORT CURVE STRIP VI SCH ×4 (06:31→21:45)
[2022-08-16] MEDS: InsuLIN REG 1unit/0.01ml Soln (100units/ml) SC SCH ×4 (06:31→21:45)
[2022-08-16 06:40] LABS: Albumin 1.5 g/dL (3.4-5.0); Bilirubin, Total 0.7 mg/dL (0.2-1.0); Calcium 8.4 mg/dL (8.5-10.1); Total Protein 4.6 g/dL (6.4-8.2)
[2022-08-16] MEDS: INSULIN LANTUS (GLARGINE) 1 /0.01ml (100units/ml) SC SCH (07:31)
[2022-08-16] MEDS: Pro-Stat SF 30ml Vanilla PO SCH ×2 (07:32→17:52)
[2022-08-16 09:16] VITALS: BP 133/93
[2022-08-16] MEDS: amLODIPine BESYLATE 5 MG TAB PO SCH (10:16)
[2022-08-16] MEDS: POLYETHYLENE GLYCOL 17 GM PWDR PO SCH (10:16)
[2022-08-16] MEDS: METOPROLOL TARTRATE 25 MG TAB PO SCH ×2 (10:16→21:57)
[2022-08-16] MEDS: NAFCILLIN SOD 2GM 12 GM in SODIUM CHLORIDE 0.9% 1,000 ML IV SCH (10:17)
[2022-08-16] MEDS: LOSARTAN POTASSIUM 25 MG TAB PO SCH (10:17)
[2022-08-16 10:33] LABS: INR 1.08 (0.9-1.15)
[2022-08-16 10:40] LABS: Partial Thromboplastin Time 74.3 sec (24.6-33.4)
[2022-08-16] MEDS: HEPARIN DRIP/D5W 100UNITS/ML 250 ML IV SCH (10:44)
[2022-08-16 13:00] VITALS: BP 150/89
[2022-08-16 16:42] VITALS: BP 127/84
[2022-08-16 16:48] LABS: INR 1.08 (0.9-1.15)
[2022-08-16 17:12] LABS: Partial Thromboplastin Time 72.9 sec (24.6-33.4)
[2022-08-16 22:00] VITALS: BP 146/88
[2022-08-16] MEDS: SENNA 8.6 MG TAB PO SCH (22:00)
[2022-08-17] MEDS: HEPARIN DRIP/D5W 100UNITS/ML 250 ML IV SCH ×2 (01:05→23:32)
[2022-08-17] MEDS: MORPHINE SULFATE INJ 2 MG/ml SYRG IV PRN ×6 (01:41→21:05)
[2022-08-17 05:00] VITALS: BP 140/79
[2022-08-17] MEDS: ACETAMINOPHEN 500 MG TAB PO SCH ×3 (06:00→20:43)
[2022-08-17] MEDS: CYCLOBENZAPRINE HCL 10 MG TAB PO SCH ×3 (06:11→20:31)
[2022-08-17] MEDS: HYDROmorphone HCL 2 MG TAB PO PRN (06:11)
[2022-08-17] MEDS: InsuLIN REG 1unit/0.01ml Soln (100units/ml) SC SCH ×4 (06:12→21:15)
[2022-08-17] MEDS: ACCU-CHEK COMFORT CURVE STRIP VI SCH ×4 (06:12→20:43)
[2022-08-17 06:54] LABS: Albumin 1.5 g/dL (3.4-5.0); Anion Gap 3 (5-15); Blood Urea Nitrogen 11 mg/dL (7-18); Calcium 8.8 mg/dL (8.5-10.1); Carbon Dioxide 27 mmol/L (21-32); Chloride 110 mmol/L (98-107); Glucose 94 mg/dL (74-106); Potassium 3.6 mmol/L (3.5-5.1); Sodium 140 mmol/L (136-145)
[2022-08-17 06:56] LABS: Alanine Aminotransferase 20 U/L (13-56); BUN/Creatinine Ratio 14.7; GFR African American 104 mL/min; GFR Non-African American 86 mL/min
[2022-08-17 07:02] LABS: INR 1.07 (0.9-1.15)
[2022-08-17 07:03] LABS: Alkaline Phosphatase 133 U/L (45-117); Aspartate Aminotransferase 22 U/L (15-37); Bilirubin, Total 0.6 mg/dL (0.2-1.0); Total Protein 5.6 g/dL (6.4-8.2)
[2022-08-17 07:09] LABS: Partial Thromboplastin Time 114.4 sec (24.6-33.4)
[2022-08-17 07:35] LABS: Basophils # (auto) 0.1 10 ^3/uL (0-0.2); Eosinophils # (auto) 0.1 10 ^3/uL (0-0.8); Lymphocytes # (auto) 1.1 10 ^3/uL (0.4-5.4); Monocytes # (auto) 0.3 10 ^3/uL (0-1.3)
[2022-08-17 07:39] LABS: Basophils % (auto) 0.9 % (0.0-2.0); Eosinophils % (auto) 1.5 % (0.0-7.0); Hematocrit 34.8 % (36.0-46.0); Hemoglobin 11.6 g/dL (12.2-16.2); Lymphocytes % (auto) 17.9 % (10.0-50.0); Mean Corpuscular Hemoglobin 25.8 pg (28.0-32.0); Mean Corpuscular Hgb Conc. 33.4 g/dL (32.0-36.0); Mean Corpuscular Volume 77.4 fL (80.0-100.0); Monocytes % (auto) 5.5 % (0.0-12.0); Neutrophils # (auto) 4.7 10 ^3/uL (1.6-8.6); Neutrophils % (auto) 74.2 % (37.0-80.0); Nucleated Red Blood Cells % 0.2 %; White Blood Cell 6.4 10^3/uL (4.4-10.8)
[2022-08-17 07:41] LABS: Red Cell Distribution Width 27.8 % (11.8-14.3)
[2022-08-17] MEDS: INSULIN LANTUS (GLARGINE) 1 /0.01ml (100units/ml) SC SCH (08:05)
[2022-08-17] MEDS: Pro-Stat SF 30ml Vanilla PO SCH ×2 (08:13→18:40)
[2022-08-17 08:54] VITALS: BP 149/91
[2022-08-17] MEDS ORDERED: HEPARIN DRIP/D5W 100UNITS/ML 250 ML IV SCH (09:00)
[2022-08-17] MEDS: LOSARTAN POTASSIUM 25 MG TAB PO SCH (09:35)
[2022-08-17] MEDS: POLYETHYLENE GLYCOL 17 GM PWDR PO SCH (09:35)
[2022-08-17] MEDS: amLODIPine BESYLATE 5 MG TAB PO SCH (09:35)
[2022-08-17] MEDS: METOPROLOL TARTRATE 25 MG TAB PO SCH ×2 (09:36→20:42)
[2022-08-17] MEDS: NAFCILLIN SOD 2GM 12 GM in SODIUM CHLORIDE 0.9% 1,000 ML IV SCH (10:57)
[2022-08-17 12:43] VITALS: BP 160/90
[2022-08-17 15:54] LABS: INR 1.07 (0.9-1.15); Partial Thromboplastin Time 58.9 sec (24.6-33.4)
[2022-08-17 16:55] VITALS: BP 143/83
[2022-08-17] MEDS: Juven Orange Powder PACKET 27.5gm PO SCH (18:40)
[2022-08-17] MEDS: SENNA 8.6 MG TAB PO SCH (20:36)
[2022-08-17 22:00] VITALS: BP 133/71
[2022-08-17] MEDS ORDERED: LOSARTAN POTASSIUM 50 MG TAB PO ONE (22:00)
[2022-08-17 22:35] LABS: INR 1.06 (0.9-1.15); Partial Thromboplastin Time 44.2 sec (24.6-33.4)
[2022-08-18] MEDS: MORPHINE SULFATE INJ 2 MG/ml SYRG IV PRN ×6 (03:51→23:32)
[2022-08-18] MEDS: ACETAMINOPHEN 500 MG TAB PO SCH ×3 (06:00→21:04)
[2022-08-18] MEDS: ACCU-CHEK COMFORT CURVE STRIP VI SCH ×4 (06:30→21:04)
[2022-08-18] MEDS: InsuLIN REG 1unit/0.01ml Soln (100units/ml) SC SCH ×4 (06:30→21:04)
[2022-08-18] MEDS: CYCLOBENZAPRINE HCL 10 MG TAB PO SCH ×3 (06:30→21:42)
[2022-08-18 07:22] LABS: Basophils # (auto) 0.1 10 ^3/uL (0-0.2); Basophils % (auto) 0.8 % (0.0-2.0); Eosinophils # (auto) 0.1 10 ^3/uL (0-0.8); Eosinophils % (auto) 0.9 % (0.0-7.0); White Blood Cell 6.9 10^3/uL (4.4-10.8)
[2022-08-18 07:24] LABS: Hematocrit 30.9 % (36.0-46.0); Hemoglobin 10.6 g/dL (12.2-16.2); Mean Corpuscular Hemoglobin 25.6 pg (28.0-32.0); Mean Corpuscular Hgb Conc. 34.3 g/dL (32.0-36.0); Mean Corpuscular Volume 74.6 fL (80.0-100.0); Monocytes # (auto) 0.4 10 ^3/uL (0-1.3); Monocytes % (auto) 5.7 % (0.0-12.0); Neutrophils # (auto) 5.4 10 ^3/uL (1.6-8.6); Neutrophils % (auto) 77.6 % (37.0-80.0); Red Blood Cells 4.15 10^6/uL (4.0-5.20)
[2022-08-18 07:37] LABS: Potassium 3.4 mmol/L (3.5-5.1)
[2022-08-18 07:49] LABS: Albumin 1.6 g/dL (3.4-5.0); BUN/Creatinine Ratio 14.1; Bilirubin, Total 0.7 mg/dL (0.2-1.0); Calcium 8.3 mg/dL (8.5-10.1); Total Protein 4.7 g/dL (6.4-8.2)
[2022-08-18] MEDS: Pro-Stat SF 30ml Vanilla PO SCH ×2 (08:26→17:43)
[2022-08-18] MEDS: INSULIN LANTUS (GLARGINE) 1 /0.01ml (100units/ml) SC SCH (08:26)
[2022-08-18] MEDS: Juven Orange Powder PACKET 27.5gm PO SCH ×2 (08:27→17:43)
[2022-08-18 08:32] LABS: Red Cell Distribution Width 28.3 % (11.8-14.3)
[2022-08-18 08:52] VITALS: BP 144/93
[2022-08-18 09:32] LABS: INR 1.08 (0.9-1.15); Partial Thromboplastin Time 31.8 sec (24.6-33.4)
[2022-08-18] MEDS: LOSARTAN POTASSIUM 25 MG TAB PO SCH (09:46)
[2022-08-18] MEDS: METOPROLOL TARTRATE 25 MG TAB PO SCH ×2 (09:46→21:42)
[2022-08-18] MEDS: POLYETHYLENE GLYCOL 17 GM PWDR PO SCH (09:46)
[2022-08-18] MEDS: NAFCILLIN SOD 2GM 12 GM in SODIUM CHLORIDE 0.9% 1,000 ML IV SCH (09:47)
[2022-08-18] MEDS: amLODIPine BESYLATE 5 MG TAB PO SCH (09:47)
[2022-08-18 12:33] VITALS: BP 149/78
[2022-08-18 14:20] LABS: INR 1.1 (0.9-1.15); Partial Thromboplastin Time 63.2 sec (24.6-33.4)
[2022-08-18] MEDS: HEPARIN DRIP/D5W 100UNITS/ML 250 ML IV SCH ×2 (15:40→20:43)
[2022-08-18] MEDS ORDERED: POTASSIUM EFFERVESENT TAB 25 MEQ GT ONE (16:15)
[2022-08-18] MEDS ORDERED: POTASSIUM EFFERVESENT TAB 25 MEQ PO ONE (16:15)
[2022-08-18 17:07] VITALS: BP 160/93
[2022-08-18 20:29] LABS: INR 1.12 (0.9-1.15)
[2022-08-18 20:31] LABS: Partial Thromboplastin Time 78.7 sec (24.6-33.4)
[2022-08-18] MEDS: SENNA 8.6 MG TAB PO SCH (21:42)
[2022-08-18 22:00] VITALS: BP 155/95
[2022-08-19 05:00] VITALS: BP 131/76
[2022-08-19] MEDS: ACETAMINOPHEN 500 MG TAB PO SCH ×3 (06:00→22:00)
[2022-08-19] MEDS: InsuLIN REG 1unit/0.01ml Soln (100units/ml) SC SCH ×4 (06:08→22:00)
[2022-08-19] MEDS: ACCU-CHEK COMFORT CURVE STRIP VI SCH ×4 (06:08→22:02)
[2022-08-19] MEDS: CYCLOBENZAPRINE HCL 10 MG TAB PO SCH ×3 (06:09→22:10)
[2022-08-19] MEDS: MORPHINE SULFATE INJ 2 MG/ml SYRG IV PRN ×5 (06:10→22:11)
[2022-08-19] MEDS: INSULIN LANTUS (GLARGINE) 1 /0.01ml (100units/ml) SC SCH (08:10)
[2022-08-19] MEDS: Pro-Stat SF 30ml Vanilla PO SCH ×2 (08:13→17:47)
[2022-08-19] MEDS: Juven Orange Powder PACKET 27.5gm PO SCH ×2 (08:14→17:47)
[2022-08-19 08:59] VITALS: BP 152/98
[2022-08-19] MEDS: POLYETHYLENE GLYCOL 17 GM PWDR PO SCH (10:00)
[2022-08-19] MEDS: NAFCILLIN SOD 2GM 12 GM in SODIUM CHLORIDE 0.9% 1,000 ML IV SCH ×2 (10:00→17:47)
[2022-08-19] MEDS: amLODIPine BESYLATE 5 MG TAB PO SCH (10:17)
[2022-08-19] MEDS: METOPROLOL TARTRATE 25 MG TAB PO SCH ×2 (10:17→22:10)
[2022-08-19] MEDS: LOSARTAN POTASSIUM 25 MG TAB PO SCH (10:18)
[2022-08-19 11:20] LABS: Basophils # (auto) 0.1 10 ^3/uL (0-0.2); Eosinophils # (auto) 0.1 10 ^3/uL (0-0.8); Hematocrit 29.9 % (36.0-46.0); Hemoglobin 9.9 g/dL (12.2-16.2); Lymphocytes # (auto) 0.9 10 ^3/uL (0.4-5.4); Neutrophils # (auto) 4.8 10 ^3/uL (1.6-8.6); Nucleated Red Blood Cells % 0.1 %
[2022-08-19 11:23] LABS: Basophils % (auto) 0.9 % (0.0-2.0); Lymphocytes % (auto) 14.5 % (10.0-50.0); Mean Corpuscular Volume 75.8 fL (80.0-100.0); Monocytes # (auto) 0.4 10 ^3/uL (0-1.3); Monocytes % (auto) 5.9 % (0.0-12.0); Neutrophils % (auto) 77.7 % (37.0-80.0); Red Blood Cells 3.95 10^6/uL (4.0-5.20); White Blood Cell 6.1 10^3/uL (4.4-10.8)
[2022-08-19 11:24] LABS: Red Cell Distribution Width 27.2 % (11.8-14.3)
[2022-08-19 11:42] LABS: INR 1.13 (0.9-1.15); Partial Thromboplastin Time 64.1 sec (24.6-33.4)
[2022-08-19 11:59] LABS: Albumin 1.5 g/dL (3.4-5.0); Calcium 8.1 mg/dL (8.5-10.1); Magnesium 1.8 mg/dL (1.6-2.6); Potassium 3.7 mmol/L (3.5-5.1)
[2022-08-19 12:06] LABS: BUN/Creatinine Ratio 13.2; Bilirubin, Total 0.7 mg/dL (0.2-1.0); Total Protein 4.7 g/dL (6.4-8.2)
[2022-08-19 13:00] VITALS: BP 144/84
[2022-08-19] MEDS: HEPARIN DRIP/D5W 100UNITS/ML 250 ML IV SCH (15:59)
[2022-08-19 16:39] VITALS: BP 149/81
[2022-08-19 17:34] LABS: INR 1.09 (0.9-1.15); Partial Thromboplastin Time 66.4 sec (24.6-33.4)
[2022-08-19 22:00] VITALS: BP 138/67
[2022-08-19] MEDS: SENNA 8.6 MG TAB PO SCH (22:00)
[2022-08-19 22:22] LABS: INR 1.11 (0.9-1.15); Partial Thromboplastin Time 67.5 sec (24.6-33.4)
[2022-08-20] MEDS: MORPHINE SULFATE INJ 2 MG/ml SYRG IV PRN ×3 (03:33→11:40)
[2022-08-20 05:00] VITALS: BP 130/72
[2022-08-20] MEDS: ACETAMINOPHEN 500 MG TAB PO SCH ×3 (06:00→22:00)
[2022-08-20 06:27] LABS: Basophils # (auto) 0.1 10 ^3/uL (0-0.2); Eosinophils # (auto) 0.1 10 ^3/uL (0-0.8); Hematocrit 30.7 % (36.0-46.0); Lymphocytes # (auto) 0.9 10 ^3/uL (0.4-5.4); Monocytes # (auto) 0.3 10 ^3/uL (0-1.3); White Blood Cell 5.9 10^3/uL (4.4-10.8)
[2022-08-20 06:29] LABS: Eosinophils % (auto) 1.5 % (0.0-7.0); Hemoglobin 10.6 g/dL (12.2-16.2); Lymphocytes % (auto) 15.8 % (10.0-50.0); Mean Corpuscular Hemoglobin 26.1 pg (28.0-32.0); Mean Corpuscular Hgb Conc. 34.6 g/dL (32.0-36.0); Mean Corpuscular Volume 75.5 fL (80.0-100.0); Monocytes % (auto) 4.9 % (0.0-12.0); Neutrophils # (auto) 4.5 10 ^3/uL (1.6-8.6); Neutrophils % (auto) 76.8 % (37.0-80.0); Red Blood Cells 4.07 10^6/uL (4.0-5.20)
[2022-08-20 06:37] LABS: INR 1.11 (0.9-1.15); Partial Thromboplastin Time 60.9 sec (24.6-33.4)
[2022-08-20 06:41] LABS: Albumin 1.5 g/dL (3.4-5.0); BUN/Creatinine Ratio 12.9; Calcium 8.9 mg/dL (8.5-10.1); Potassium 3.2 mmol/L (3.5-5.1)
[2022-08-20 06:43] LABS: Bilirubin, Total 0.8 mg/dL (0.2-1.0); Total Protein 5.5 g/dL (6.4-8.2)
[2022-08-20] MEDS: InsuLIN REG 1unit/0.01ml Soln (100units/ml) SC SCH ×4 (06:50→22:00)
[2022-08-20] MEDS: CYCLOBENZAPRINE HCL 10 MG TAB PO SCH ×3 (06:52→22:47)
[2022-08-20] MEDS: ACCU-CHEK COMFORT CURVE STRIP VI SCH ×4 (06:54→22:54)
[2022-08-20 07:00] LABS: Red Cell Distribution Width 28.7 % (11.8-14.3)
[2022-08-20 07:36] LABS: Urine Blood 1+ /uL (Negative); Urine Specific Gravity 1.004 (1.001-1.035)
[2022-08-20] MEDS: Juven Orange Powder PACKET 27.5gm PO SCH ×2 (08:10→18:10)
[2022-08-20] MEDS: Pro-Stat SF 30ml Vanilla PO SCH ×2 (08:10→18:10)
[2022-08-20] MEDS: INSULIN LANTUS (GLARGINE) 1 /0.01ml (100units/ml) SC SCH (08:40)
[2022-08-20 09:00] VITALS: BP 128/76
[2022-08-20] MEDS: LOSARTAN POTASSIUM 25 MG TAB PO SCH (11:06)
[2022-08-20] MEDS: METOPROLOL TARTRATE 25 MG TAB PO SCH ×2 (11:06→22:47)
[2022-08-20] MEDS: POLYETHYLENE GLYCOL 17 GM PWDR PO SCH (11:06)
[2022-08-20] MEDS: amLODIPine BESYLATE 5 MG TAB PO SCH (11:07)
[2022-08-20] MEDS: HEPARIN DRIP/D5W 100UNITS/ML 250 ML IV SCH ×2 (11:13→17:00)
[2022-08-20 13:00] VITALS: BP 125/84
[2022-08-20] MEDS: HYDROmorphone HCL 2 MG TAB PO PRN ×2 (14:33→20:34)
[2022-08-20 17:00] VITALS: BP 137/74
[2022-08-20] MEDS: SENNA 8.6 MG TAB PO SCH (22:00)
[2022-08-21] MEDS: HYDROmorphone HCL 2 MG TAB PO PRN ×3 (03:45→21:38)
[2022-08-21] MEDS: ACETAMINOPHEN 500 MG TAB PO SCH ×3 (06:00→21:52)
[2022-08-21] MEDS: CYCLOBENZAPRINE HCL 10 MG TAB PO SCH (06:25)
[2022-08-21] MEDS: InsuLIN REG 1unit/0.01ml Soln (100units/ml) SC SCH ×4 (06:29→21:53)
[2022-08-21] MEDS: ACCU-CHEK COMFORT CURVE STRIP VI SCH ×4 (06:29→21:52)
[2022-08-21 06:47] LABS: Basophils # (auto) 0.1 10 ^3/uL (0-0.2); Eosinophils # (auto) 0.1 10 ^3/uL (0-0.8); Hematocrit 31.1 % (36.0-46.0); Lymphocytes # (auto) 0.9 10 ^3/uL (0.4-5.4); Monocytes # (auto) 0.3 10 ^3/uL (0-1.3); Neutrophils # (auto) 4.2 10 ^3/uL (1.6-8.6); Red Blood Cells 4.11 10^6/uL (4.0-5.20)
[2022-08-21 06:51] LABS: Eosinophils % (auto) 2.3 % (0.0-7.0); Hemoglobin 10.7 g/dL (12.2-16.2); Lymphocytes % (auto) 15.6 % (10.0-50.0); Mean Corpuscular Hemoglobin 26.1 pg (28.0-32.0); Mean Corpuscular Hgb Conc. 34.6 g/dL (32.0-36.0); Mean Corpuscular Volume 75.5 fL (80.0-100.0); Monocytes % (auto) 6.1 % (0.0-12.0); Red Cell Distribution Width 28.3 % (11.8-14.3); White Blood Cell 5.7 10^3/uL (4.4-10.8)
[2022-08-21 06:55] LABS: Potassium 3.5 mmol/L (3.5-5.1)
[2022-08-21] MEDS: MORPHINE SULFATE INJ 2 MG/ml SYRG IV PRN ×2 (06:55→19:21)
[2022-08-21 07:01] LABS: INR 1.13 (0.9-1.15); Partial Thromboplastin Time 34.7 sec (24.6-33.4)
[2022-08-21 07:02] LABS: Albumin 1.7 g/dL (3.4-5.0); BUN/Creatinine Ratio 8.3; Bilirubin, Total 0.5 mg/dL (0.2-1.0); Calcium 8.6 mg/dL (8.5-10.1); Total Protein 5.2 g/dL (6.4-8.2)
[2022-08-21] MEDS: INSULIN LANTUS (GLARGINE) 1 /0.01ml (100units/ml) SC SCH (08:00)
[2022-08-21] MEDS: Juven Orange Powder PACKET 27.5gm PO SCH ×2 (08:21→18:00)
[2022-08-21] MEDS: Pro-Stat SF 30ml Vanilla PO SCH ×2 (08:22→18:00)
[2022-08-21] MEDS ORDERED: HEPARIN DRIP/D5W 100UNITS/ML 250 ML IV SCH (08:30)
[2022-08-21] MEDS ORDERED: HEPARIN SODIUM (PORCINE) 5000 UNITS/ML 1ML VIAL IV ONE (08:30)
[2022-08-21 08:43] VITALS: BP 146/75
[2022-08-21] MEDS: POLYETHYLENE GLYCOL 17 GM PWDR PO SCH (10:00)
[2022-08-21] MEDS: amLODIPine BESYLATE 5 MG TAB PO SCH (10:53)
[2022-08-21] MEDS: METOPROLOL TARTRATE 25 MG TAB PO SCH ×2 (10:53→21:52)
[2022-08-21] MEDS: LOSARTAN POTASSIUM 25 MG TAB PO SCH (10:54)
[2022-08-21] MEDS: NAFCILLIN SOD 2GM 12 GM in SODIUM CHLORIDE 0.9% 1,000 ML IV SCH (10:58)
[2022-08-21 13:00] VITALS: BP 137/78
[2022-08-21 16:39] VITALS: BP 149/81
[2022-08-21] MEDS: ENOXAPARIN SOD 80 MG/0.8ML SYRINGE SC SCH (21:51)
[2022-08-21] MEDS: SENNA 8.6 MG TAB PO SCH (21:52)
[2022-08-21 22:00] VITALS: BP 153/95
[2022-08-22] MEDS: MORPHINE SULFATE INJ 2 MG/ml SYRG IV PRN ×2 (04:02→13:42)
[2022-08-22 05:06] VITALS: BP 130/102
[2022-08-22] MEDS: ACETAMINOPHEN 500 MG TAB PO SCH ×3 (06:00→21:34)
[2022-08-22] MEDS: ACCU-CHEK COMFORT CURVE STRIP VI SCH ×4 (06:12→21:36)
[2022-08-22] MEDS: InsuLIN REG 1unit/0.01ml Soln (100units/ml) SC SCH ×4 (06:13→21:35)
[2022-08-22 09:00] VITALS: BP 137/79
[2022-08-22] MEDS: Pro-Stat SF 30ml Vanilla PO SCH ×2 (09:00→17:29)
[2022-08-22] MEDS: Juven Orange Powder PACKET 27.5gm PO SCH ×2 (09:00→17:29)
[2022-08-22] MEDS: NAFCILLIN SOD 2GM 12 GM in SODIUM CHLORIDE 0.9% 1,000 ML IV SCH (09:26)
[2022-08-22] MEDS: LOSARTAN POTASSIUM 25 MG TAB PO SCH (09:27)
[2022-08-22] MEDS: amLODIPine BESYLATE 5 MG TAB PO SCH (09:28)
[2022-08-22] MEDS: METOPROLOL TARTRATE 25 MG TAB PO SCH ×2 (09:28→21:33)
[2022-08-22] MEDS: ENOXAPARIN SOD 80 MG/0.8ML SYRINGE SC SCH ×2 (09:29→21:36)
[2022-08-22] MEDS: PANTOPRAZOLE 40 MG TAB PO SCH (09:29)
[2022-08-22] MEDS: HYDROmorphone HCL 2 MG TAB PO PRN ×4 (09:29→23:12)
[2022-08-22] MEDS: POLYETHYLENE GLYCOL 17 GM PWDR PO SCH (09:30)
[2022-08-22] MEDS: INSULIN LANTUS (GLARGINE) 1 /0.01ml (100units/ml) SC SCH (09:39)
[2022-08-22 10:47] LABS: Eosinophils # (auto) 0.1 10 ^3/uL (0-0.8); Hemoglobin 10.9 g/dL (12.2-16.2); Lymphocytes # (auto) 0.9 10 ^3/uL (0.4-5.4); Nucleated Red Blood Cells % 0.1 %
[2022-08-22 10:51] LABS: Basophils # (auto) 0.1 10 ^3/uL (0-0.2); Basophils % (auto) 0.9 % (0.0-2.0); Hematocrit 32.5 % (36.0-46.0); Lymphocytes % (auto) 13.5 % (10.0-50.0); Mean Corpuscular Hemoglobin 25.8 pg (28.0-32.0); Mean Corpuscular Hgb Conc. 33.6 g/dL (32.0-36.0); Mean Corpuscular Volume 76.8 fL (80.0-100.0); Monocytes # (auto) 0.4 10 ^3/uL (0-1.3); Monocytes % (auto) 6.4 % (0.0-12.0); Neutrophils % (auto) 77.2 % (37.0-80.0); Red Blood Cells 4.23 10^6/uL (4.0-5.20); White Blood Cell 6.5 10^3/uL (4.4-10.8)
[2022-08-22 11:07] LABS: Potassium 3.9 mmol/L (3.5-5.1)
[2022-08-22 11:13] LABS: Albumin 1.9 g/dL (3.4-5.0); Bilirubin, Total 0.7 mg/dL (0.2-1.0); Total Protein 5.4 g/dL (6.4-8.2)
[2022-08-22 11:15] LABS: Red Cell Distribution Width 28.2 % (11.8-14.3)
[2022-08-22 16:30] VITALS: BP 122/56
[2022-08-22] MEDS ORDERED: LIDOCAINE 1% (LOCAL ANESTH.) PF 5ml SDV ID ONE (19:15)
[2022-08-22] MEDS: SENNA 8.6 MG TAB PO SCH (21:47)
[2022-08-22] MEDS: SODIUM CHLOR 0.9% PF (SALINE LOCK) 10ML VIAL/SYR IV SCH (21:47)
[2022-08-22 22:00] VITALS: BP 121/67
[2022-08-23 04:37] VITALS: BP 145/83
[2022-08-23] MEDS: HYDROmorphone HCL 2 MG TAB PO PRN ×4 (04:43→22:29)
[2022-08-23] MEDS: ACETAMINOPHEN 500 MG TAB PO SCH ×3 (06:00→21:37)
[2022-08-23 06:10] LABS: Basophils # (auto) 0.1 10 ^3/uL (0-0.2); Eosinophils # (auto) 0.1 10 ^3/uL (0-0.8); Hemoglobin 10.3 g/dL (12.2-16.2); Monocytes # (auto) 0.3 10 ^3/uL (0-1.3); Nucleated Red Blood Cells % 0.1 %; White Blood Cell 4.8 10^3/uL (4.4-10.8)
[2022-08-23 06:12] LABS: Basophils % (auto) 1.2 % (0.0-2.0); Eosinophils % (auto) 2.6 % (0.0-7.0); Hematocrit 30.6 % (36.0-46.0); Lymphocytes % (auto) 20.9 % (10.0-50.0); Mean Corpuscular Hgb Conc. 33.6 g/dL (32.0-36.0); Mean Corpuscular Volume 77.3 fL (80.0-100.0); Neutrophils # (auto) 3.4 10 ^3/uL (1.6-8.6); Neutrophils % (auto) 69.3 % (37.0-80.0); Red Blood Cells 3.96 10^6/uL (4.0-5.20)
[2022-08-23 06:18] LABS: Red Cell Distribution Width 28.8 % (11.8-14.3)
[2022-08-23 06:26] LABS: Potassium 3.2 mmol/L (3.5-5.1)
[2022-08-23 06:33] LABS: Albumin 1.7 g/dL (3.4-5.0); BUN/Creatinine Ratio 13.9; Bilirubin, Total 0.7 mg/dL (0.2-1.0); Calcium 8.6 mg/dL (8.5-10.1); Total Protein 5.7 g/dL (6.4-8.2)
[2022-08-23] MEDS: ACCU-CHEK COMFORT CURVE STRIP VI SCH ×4 (06:37→21:40)
[2022-08-23] MEDS: InsuLIN REG 1unit/0.01ml Soln (100units/ml) SC SCH ×4 (06:37→21:40)
[2022-08-23] MEDS: Pro-Stat SF 30ml Vanilla PO SCH ×2 (08:00→18:00)
[2022-08-23] MEDS: Juven Orange Powder PACKET 27.5gm PO SCH ×2 (08:00→18:00)
[2022-08-23 09:00] VITALS: BP 114/78
[2022-08-23] MEDS: METOPROLOL TARTRATE 25 MG TAB PO SCH ×2 (09:19→22:09)
[2022-08-23] MEDS: amLODIPine BESYLATE 5 MG TAB PO SCH (09:20)
[2022-08-23] MEDS: ENOXAPARIN SOD 80 MG/0.8ML SYRINGE SC SCH ×2 (09:21→21:40)
[2022-08-23] MEDS: PANTOPRAZOLE 40 MG TAB PO SCH (09:21)
[2022-08-23] MEDS: LOSARTAN POTASSIUM 25 MG TAB PO SCH (09:21)
[2022-08-23] MEDS: NAFCILLIN SOD 2GM 12 GM in SODIUM CHLORIDE 0.9% 1,000 ML IV SCH (09:22)
[2022-08-23] MEDS: INSULIN LANTUS (GLARGINE) 1 /0.01ml (100units/ml) SC SCH (09:26)
[2022-08-23] MEDS: POLYETHYLENE GLYCOL 17 GM PWDR PO SCH (10:00)
[2022-08-23] MEDS ORDERED: POTASSIUM EFFERVESENT TAB 25 MEQ GT ONE (10:15)
[2022-08-23] MEDS: SODIUM CHLOR 0.9% PF (SALINE LOCK) 10ML VIAL/SYR IV SCH ×2 (10:18→21:39)
[2022-08-23] MEDS ORDERED: GADOTERATE MEG 10 MMOL/20ml INJ (0.5MMOL/ml) IV ONE (12:04)
[2022-08-23] MEDS: MORPHINE SULFATE INJ 2 MG/ml SYRG IV PRN (12:45)
[2022-08-23 13:00] VITALS: BP 132/72
[2022-08-23 13:56] LABS: Urine Bacteria NONE SEEN /hpf (None Seen); Urine Blood 1+ /uL (Negative); Urine Budding Yeast MODERATE /hpf (None Seen); Urine Hyaline Cast FEW /lpf (0 - 2); Urine Mucus FEW (None Seen); Urine Specific Gravity 1.013 (1.001-1.035); Urine WBC 189 /hpf (0 - 5)
[2022-08-23] MEDS ORDERED: MAGNESIUM SULFATE 1GM/100ML 100 ML IV ONE (17:00)
[2022-08-23] MEDS: SENNA 8.6 MG TAB PO SCH (21:39)
[2022-08-24 05:00] VITALS: BP 140/77
[2022-08-24] MEDS: MORPHINE SULFATE INJ 2 MG/ml SYRG IV PRN ×2 (05:31→10:49)
[2022-08-24] MEDS: ACETAMINOPHEN 500 MG TAB PO SCH ×3 (05:36→22:17)
[2022-08-24] MEDS: ACCU-CHEK COMFORT CURVE STRIP VI SCH ×4 (06:12→22:17)
[2022-08-24] MEDS: InsuLIN REG 1unit/0.01ml Soln (100units/ml) SC SCH ×4 (06:12→22:35)
[2022-08-24 06:29] LABS: Eosinophils # (auto) 0.1 10 ^3/uL (0-0.8); Monocytes # (auto) 0.3 10 ^3/uL (0-1.3); Neutrophils # (auto) 3.4 10 ^3/uL (1.6-8.6)
[2022-08-24 06:32] LABS: Basophils # (auto) 0.1 10 ^3/uL (0-0.2); Basophils % (auto) 1.2 % (0.0-2.0); Eosinophils % (auto) 2.7 % (0.0-7.0); Hematocrit 30.8 % (36.0-46.0); Hemoglobin 10.5 g/dL (12.2-16.2); Lymphocytes # (auto) 0.9 10 ^3/uL (0.4-5.4); Mean Corpuscular Volume 76.5 fL (80.0-100.0); Monocytes % (auto) 6.5 % (0.0-12.0); Neutrophils % (auto) 71.6 % (37.0-80.0); Red Blood Cells 4.03 10^6/uL (4.0-5.20); White Blood Cell 4.8 10^3/uL (4.4-10.8)
[2022-08-24 06:34] LABS: Red Cell Distribution Width 29.3 % (11.8-14.3)
[2022-08-24 07:12] LABS: Potassium 3.1 mmol/L (3.5-5.1)
[2022-08-24 07:24] LABS: Albumin 1.8 g/dL (3.4-5.0); BUN/Creatinine Ratio 15.7; Bilirubin, Total 0.7 mg/dL (0.2-1.0); Calcium 8.6 mg/dL (8.5-10.1); Total Protein 5.8 g/dL (6.4-8.2)
[2022-08-24] MEDS ORDERED: LIDOCAINE 2%HCL (LOCAL ANESTH.) INJ 10ml MDV ONE (07:30)
[2022-08-24] MEDS ORDERED: IOHEXOL 350 MG/ML 100ML IJ ONE (07:30)
[2022-08-24] MEDS ORDERED: MIDAZOLAM HCL 2MG/2ML 2ml VIAL (1mg/ml) IV ONE (07:45)
[2022-08-24] MEDS ORDERED: fentaNYL CITRATE 100 MCG/2 ML VL IV ONE (07:45)
[2022-08-24] MEDS: Pro-Stat SF 30ml Vanilla PO SCH ×2 (08:00→18:00)
[2022-08-24] MEDS: Juven Orange Powder PACKET 27.5gm PO SCH ×2 (08:00→18:00)
[2022-08-24] MEDS: INSULIN LANTUS (GLARGINE) 1 /0.01ml (100units/ml) SC SCH (08:00)
[2022-08-24] MEDS ORDERED: MIDAZOLAM HCL 2MG/2ML 2ml VIAL (1mg/ml) ONE (08:01)
[2022-08-24] MEDS ORDERED: fentaNYL CITRATE 100 MCG/2 ML VL ONE (08:01)
[2022-08-24 09:00] VITALS: BP 142/87
[2022-08-24] MEDS ORDERED: POTASSIUM EFFERVESENT TAB 25 MEQ PO ONE ×3 (09:15→18:00)
[2022-08-24] MEDS ORDERED: POTASSIUM CHL 20MEQ/100ML 100 ML IV SCH (09:45)
[2022-08-24] MEDS ORDERED: ALBUMIN 25% 100 ML IV SCH (11:00)
[2022-08-24] MEDS: SODIUM CHLOR 0.9% PF (SALINE LOCK) 10ML VIAL/SYR IV SCH ×2 (11:13→22:16)
[2022-08-24] MEDS: LOSARTAN POTASSIUM 25 MG TAB PO SCH (11:20)
[2022-08-24] MEDS: POLYETHYLENE GLYCOL 17 GM PWDR PO SCH (11:24)
[2022-08-24] MEDS: amLODIPine BESYLATE 5 MG TAB PO SCH (11:24)
[2022-08-24] MEDS: METOPROLOL TARTRATE 25 MG TAB PO SCH ×2 (11:24→22:16)
[2022-08-24] MEDS: PANTOPRAZOLE 40 MG TAB PO SCH (11:25)
[2022-08-24] MEDS: ENOXAPARIN SOD 80 MG/0.8ML SYRINGE SC SCH ×2 (11:25→22:17)
[2022-08-24] MEDS: HYDROmorphone HCL 2 MG TAB PO PRN ×3 (12:23→22:17)
[2022-08-24 13:00] VITALS: BP 152/87
[2022-08-24] MEDS: NAFCILLIN SOD 2GM 12 GM in SODIUM CHLORIDE 0.9% 1,000 ML IV SCH (14:10)
[2022-08-24 16:20] VITALS: BP 121/68
[2022-08-24 22:00] VITALS: BP 114/54
[2022-08-24] MEDS: SENNA 8.6 MG TAB PO SCH (22:16)
[2022-08-25] MEDS: MORPHINE SULFATE INJ 2 MG/ml SYRG IV PRN ×2 (01:00→19:15)
[2022-08-25 05:00] VITALS: BP 124/80
[2022-08-25] MEDS: ACCU-CHEK COMFORT CURVE STRIP VI SCH ×4 (05:11→21:44)
[2022-08-25] MEDS: ACETAMINOPHEN 500 MG TAB PO SCH ×3 (05:11→21:39)
[2022-08-25] MEDS: HYDROmorphone HCL 2 MG TAB PO PRN ×4 (05:11→21:16)
[2022-08-25] MEDS: InsuLIN REG 1unit/0.01ml Soln (100units/ml) SC SCH ×4 (05:24→21:44)
[2022-08-25 06:24] LABS: Basophils # (auto) 0 10 ^3/uL (0-0.2); Eosinophils # (auto) 0.1 10 ^3/uL (0-0.8); Mean Corpuscular Hemoglobin 25.8 pg (28.0-32.0); Monocytes # (auto) 0.3 10 ^3/uL (0-1.3); Neutrophils # (auto) 2.6 10 ^3/uL (1.6-8.6)
[2022-08-25 06:26] LABS: Basophils % (auto) 1.1 % (0.0-2.0); Eosinophils % (auto) 2.7 % (0.0-7.0); Hematocrit 30.5 % (36.0-46.0); Hemoglobin 10.2 g/dL (12.2-16.2); Lymphocytes # (auto) 0.9 10 ^3/uL (0.4-5.4); Lymphocytes % (auto) 22.9 % (10.0-50.0); Mean Corpuscular Hgb Conc. 33.4 g/dL (32.0-36.0); Mean Corpuscular Volume 77.2 fL (80.0-100.0); Monocytes % (auto) 7.8 % (0.0-12.0); Neutrophils % (auto) 65.5 % (37.0-80.0); Nucleated Red Blood Cells % 0.1 %; Red Blood Cells 3.96 10^6/uL (4.0-5.20); White Blood Cell 3.9 10^3/uL (4.4-10.8)
[2022-08-25 06:28] LABS: Red Cell Distribution Width 30.1 % (11.8-14.3)
[2022-08-25 06:36] LABS: Potassium 4.4 mmol/L (3.5-5.1)
[2022-08-25 06:52] LABS: Albumin 2.1 g/dL (3.4-5.0); BUN/Creatinine Ratio 12.7; Bilirubin, Total 0.7 mg/dL (0.2-1.0); Calcium 9.1 mg/dL (8.5-10.1)
[2022-08-25] MEDS: Pro-Stat SF 30ml Vanilla PO SCH ×2 (08:00→17:55)
[2022-08-25] MEDS: Juven Orange Powder PACKET 27.5gm PO SCH ×2 (08:00→17:55)
[2022-08-25 09:00] VITALS: BP 132/73
[2022-08-25] MEDS: LOSARTAN POTASSIUM 25 MG TAB PO SCH (10:00)
[2022-08-25] MEDS: POLYETHYLENE GLYCOL 17 GM PWDR PO SCH (10:00)
[2022-08-25] MEDS: amLODIPine BESYLATE 5 MG TAB PO SCH (10:00)
[2022-08-25] MEDS: ENOXAPARIN SOD 80 MG/0.8ML SYRINGE SC SCH ×2 (10:54→21:41)
[2022-08-25] MEDS: PANTOPRAZOLE 40 MG TAB PO SCH (10:54)
[2022-08-25] MEDS: METOPROLOL TARTRATE 25 MG TAB PO SCH ×2 (10:55→21:41)
[2022-08-25] MEDS: SODIUM CHLOR 0.9% PF (SALINE LOCK) 10ML VIAL/SYR IV SCH ×2 (11:08→22:25)
[2022-08-25] MEDS: NAFCILLIN SOD 2GM 12 GM in SODIUM CHLORIDE 0.9% 1,000 ML IV SCH (11:09)
[2022-08-25] MEDS: INSULIN LANTUS (GLARGINE) 1 /0.01ml (100units/ml) SC SCH (11:27)
[2022-08-25 13:00] VITALS: BP 108/72
[2022-08-25 16:51] VITALS: BP 121/67
[2022-08-25] MEDS: SENNA 8.6 MG TAB PO SCH (21:44)
[2022-08-26] MEDS: HYDROmorphone HCL 2 MG TAB PO PRN ×6 (01:53→20:38)
[2022-08-26 05:08] VITALS: BP 130/75
[2022-08-26 06:00] LABS: Basophils # (auto) 0 10 ^3/uL (0-0.2); Basophils % (auto) 1.2 % (0.0-2.0); Eosinophils # (auto) 0.2 10 ^3/uL (0-0.8); Hemoglobin 10.5 g/dL (12.2-16.2); Lymphocytes # (auto) 0.9 10 ^3/uL (0.4-5.4); Monocytes # (auto) 0.3 10 ^3/uL (0-1.3)
[2022-08-26 06:04] LABS: Eosinophils % (auto) 4.5 % (0.0-7.0); Hematocrit 31.6 % (36.0-46.0); Lymphocytes % (auto) 24.6 % (10.0-50.0); Mean Corpuscular Hemoglobin 25.7 pg (28.0-32.0); Mean Corpuscular Hgb Conc. 33.1 g/dL (32.0-36.0); Mean Corpuscular Volume 77.6 fL (80.0-100.0); Monocytes % (auto) 7.1 % (0.0-12.0); Neutrophils # (auto) 2.3 10 ^3/uL (1.6-8.6); Neutrophils % (auto) 62.6 % (37.0-80.0); Red Blood Cells 4.08 10^6/uL (4.0-5.20); White Blood Cell 3.6 10^3/uL (4.4-10.8)
[2022-08-26 06:20] LABS: BUN/Creatinine Ratio 13.7; Calcium 8.9 mg/dL (8.5-10.1); Potassium 3.7 mmol/L (3.5-5.1)
[2022-08-26 06:22] LABS: Bilirubin, Total 0.6 mg/dL (0.2-1.0); Total Protein 5.9 g/dL (6.4-8.2)
[2022-08-26] MEDS: ACCU-CHEK COMFORT CURVE STRIP VI SCH ×4 (06:30→21:52)
[2022-08-26] MEDS: ACETAMINOPHEN 500 MG TAB PO SCH ×3 (06:30→21:38)
[2022-08-26] MEDS: InsuLIN REG 1unit/0.01ml Soln (100units/ml) SC SCH ×4 (07:00→21:52)
[2022-08-26] MEDS: Juven Orange Powder PACKET 27.5gm PO SCH ×2 (08:00→17:21)
[2022-08-26] MEDS: Pro-Stat SF 30ml Vanilla PO SCH ×2 (08:00→17:21)
[2022-08-26] MEDS: INSULIN LANTUS (GLARGINE) 1 /0.01ml (100units/ml) SC SCH (08:46)
[2022-08-26 09:00] VITALS: BP 130/74
[2022-08-26] MEDS: NAFCILLIN SOD 2GM 12 GM in SODIUM CHLORIDE 0.9% 1,000 ML IV SCH ×2 (10:00→13:30)
[2022-08-26] MEDS: LOSARTAN POTASSIUM 25 MG TAB PO SCH (11:11)
[2022-08-26] MEDS: PANTOPRAZOLE 40 MG TAB PO SCH (11:11)
[2022-08-26] MEDS: METOPROLOL TARTRATE 25 MG TAB PO SCH ×2 (11:13→21:38)
[2022-08-26] MEDS: SODIUM CHLOR 0.9% PF (SALINE LOCK) 10ML VIAL/SYR IV SCH ×2 (11:14→21:53)
[2022-08-26] MEDS: ENOXAPARIN SOD 80 MG/0.8ML SYRINGE SC SCH ×2 (11:14→21:40)
[2022-08-26 13:00] VITALS: BP 141/78
[2022-08-26 17:00] VITALS: BP 113/64
[2022-08-26] MEDS: MORPHINE SULFATE INJ 2 MG/ml SYRG IV PRN (17:53)
[2022-08-26] MEDS: SENNA 8.6 MG TAB PO SCH ×2 (21:39→21:52)
[2022-08-26 22:00] VITALS: BP 122/65
[2022-08-27] MEDS: HYDROmorphone HCL 2 MG TAB PO PRN ×5 (00:40→20:50)
[2022-08-27 05:00] VITALS: BP 136/78
[2022-08-27 06:04] LABS: Basophils # (auto) 0.1 10 ^3/uL (0-0.2); Eosinophils # (auto) 0.2 10 ^3/uL (0-0.8); Lymphocytes # (auto) 1.1 10 ^3/uL (0.4-5.4); Monocytes # (auto) 0.3 10 ^3/uL (0-1.3); Nucleated Red Blood Cells % 0.1 %
[2022-08-27 06:07] LABS: Basophils % (auto) 1.4 % (0.0-2.0); Eosinophils % (auto) 3.6 % (0.0-7.0); Hematocrit 33.7 % (36.0-46.0); Hemoglobin 11.5 g/dL (12.2-16.2); Mean Corpuscular Hemoglobin 26.4 pg (28.0-32.0); Mean Corpuscular Hgb Conc. 34.2 g/dL (32.0-36.0); Mean Corpuscular Volume 77.2 fL (80.0-100.0); Monocytes % (auto) 5.6 % (0.0-12.0); Neutrophils # (auto) 3.4 10 ^3/uL (1.6-8.6); Neutrophils % (auto) 68.4 % (37.0-80.0); Red Blood Cells 4.36 10^6/uL (4.0-5.20); Red Cell Distribution Width 29.9 % (11.8-14.3)
[2022-08-27] MEDS: InsuLIN REG 1unit/0.01ml Soln (100units/ml) SC SCH ×4 (06:16→21:56)
[2022-08-27] MEDS: ACCU-CHEK COMFORT CURVE STRIP VI SCH ×4 (06:17→21:56)
[2022-08-27] MEDS: ACETAMINOPHEN 500 MG TAB PO SCH ×3 (06:22→21:51)
[2022-08-27 06:31] LABS: Albumin 2.1 g/dL (3.4-5.0); BUN/Creatinine Ratio 13.7; Bilirubin, Total 0.5 mg/dL (0.2-1.0); Calcium 8.5 mg/dL (8.5-10.1); Potassium 3.4 mmol/L (3.5-5.1); Total Protein 6.1 g/dL (6.4-8.2)
[2022-08-27] MEDS: INSULIN LANTUS (GLARGINE) 1 /0.01ml (100units/ml) SC SCH (08:00)
[2022-08-27 09:00] VITALS: BP 132/72
[2022-08-27] MEDS: ENOXAPARIN SOD 80 MG/0.8ML SYRINGE SC SCH ×2 (09:41→21:51)
[2022-08-27] MEDS: PANTOPRAZOLE 40 MG TAB PO SCH (09:42)
[2022-08-27] MEDS: LOSARTAN POTASSIUM 25 MG TAB PO SCH (09:42)
[2022-08-27] MEDS: METOPROLOL TARTRATE 25 MG TAB PO SCH ×2 (09:42→21:54)
[2022-08-27] MEDS: NAFCILLIN SOD 2GM 12 GM in SODIUM CHLORIDE 0.9% 1,000 ML IV SCH (09:43)
[2022-08-27] MEDS: Juven Orange Powder PACKET 27.5gm PO SCH ×2 (09:54→17:48)
[2022-08-27] MEDS: Pro-Stat SF 30ml Vanilla PO SCH ×2 (09:55→17:49)
[2022-08-27] MEDS: SODIUM CHLOR 0.9% PF (SALINE LOCK) 10ML VIAL/SYR IV SCH ×2 (09:55→21:55)
[2022-08-27] MEDS ORDERED: POTASSIUM EFFERVESENT TAB 25 MEQ GT ONE (10:30)
[2022-08-27] MEDS: MORPHINE SULFATE INJ 2 MG/ml SYRG IV PRN (13:57)
[2022-08-27] MEDS ORDERED: METOCLOPRAMIDE HCL 10 MG TAB PO PRN (16:00)
[2022-08-27] MEDS ORDERED: SENN-83 PO ×2 (16:07)
[2022-08-27] MEDS ORDERED: INSLANTI SC (16:07)
[2022-08-27] MEDS ORDERED: [UNRECOGNIZED DRUG - CODE] PO (16:07)
[2022-08-27] MEDS ORDERED: GAB100C PO (16:07)
[2022-08-27] MEDS ORDERED: MET25T PO (16:07)
[2022-08-27] MEDS ORDERED: METH500T22 PO (16:07)
[2022-08-27] MEDS ORDERED: RIVA1TAB PO (16:07)
[2022-08-27] MEDS ORDERED: LOS25T PO (16:07)
[2022-08-27] MEDS ORDERED: POLY33504 PO (16:09)
[2022-08-27] MEDS ORDERED: ACET325T10 PO (16:10)
[2022-08-27] MEDS ORDERED: METHOCARBAMOL 500 MG TAB PO PRN (16:15)
[2022-08-27 17:00] VITALS: BP 133/80
[2022-08-27] MEDS: SENNA 8.6 MG TAB PO SCH (21:55)
[2022-08-27 22:00] VITALS: BP 126/70
[2022-08-27] MEDS ORDERED: GABAPENTIN 100 MG CAP PO SCH (22:00)
[2022-08-28] MEDS: HYDROmorphone HCL 2 MG TAB PO PRN ×3 (01:26→10:12)
[2022-08-28] MEDS: MORPHINE SULFATE INJ 2 MG/ml SYRG IV PRN ×2 (04:02→13:42)
[2022-08-28 05:00] VITALS: BP 136/76
[2022-08-28] MEDS: ACETAMINOPHEN 500 MG TAB PO SCH ×2 (06:02→13:42)
[2022-08-28 06:16] LABS: Eosinophils # (auto) 0.1 10 ^3/uL (0-0.8); Monocytes # (auto) 0.2 10 ^3/uL (0-1.3)
[2022-08-28 06:19] LABS: Basophils # (auto) 0.1 10 ^3/uL (0-0.2); Basophils % (auto) 1.4 % (0.0-2.0); Eosinophils % (auto) 3.5 % (0.0-7.0); Hematocrit 31.6 % (36.0-46.0); Hemoglobin 10.7 g/dL (12.2-16.2); Lymphocytes % (auto) 24.7 % (10.0-50.0); Mean Corpuscular Hgb Conc. 33.7 g/dL (32.0-36.0); Mean Corpuscular Volume 77.2 fL (80.0-100.0); Monocytes % (auto) 6.3 % (0.0-12.0); Neutrophils # (auto) 2.5 10 ^3/uL (1.6-8.6); Neutrophils % (auto) 64.1 % (37.0-80.0); Red Blood Cells 4.09 10^6/uL (4.0-5.20); White Blood Cell 3.9 10^3/uL (4.4-10.8)
[2022-08-28 06:21] LABS: Red Cell Distribution Width 29.8 % (11.8-14.3)
[2022-08-28] MEDS: InsuLIN REG 1unit/0.01ml Soln (100units/ml) SC SCH ×2 (06:31→11:30)
[2022-08-28] MEDS: ACCU-CHEK COMFORT CURVE STRIP VI SCH ×2 (06:32→12:05)
[2022-08-28 06:47] LABS: Albumin 1.9 g/dL (3.4-5.0); Calcium 8.4 mg/dL (8.5-10.1); Potassium 3.2 mmol/L (3.5-5.1)
[2022-08-28 06:57] LABS: BUN/Creatinine Ratio 15.9; Bilirubin, Total 0.6 mg/dL (0.2-1.0); Total Protein 5.7 g/dL (6.4-8.2)
[2022-08-28] MEDS: INSULIN LANTUS (GLARGINE) 1 /0.01ml (100units/ml) SC SCH (08:00)
[2022-08-28] MEDS: Pro-Stat SF 30ml Vanilla PO SCH (08:05)
[2022-08-28] MEDS: Juven Orange Powder PACKET 27.5gm PO SCH (08:05)
[2022-08-28 09:00] VITALS: BP 144/74
[2022-08-28] MEDS: NAFCILLIN SOD 2GM 12 GM in SODIUM CHLORIDE 0.9% 1,000 ML IV SCH (09:04)
[2022-08-28] MEDS: SODIUM CHLOR 0.9% PF (SALINE LOCK) 10ML VIAL/SYR IV SCH (09:04)
[2022-08-28] MEDS: METOPROLOL TARTRATE 25 MG TAB PO SCH (09:05)
[2022-08-28] MEDS: LOSARTAN POTASSIUM 25 MG TAB PO SCH (09:05)
[2022-08-28] MEDS: PANTOPRAZOLE 40 MG TAB PO SCH (09:05)
[2022-08-28] MEDS: ENOXAPARIN SOD 80 MG/0.8ML SYRINGE SC SCH (09:06)
[2022-08-28] MEDS ORDERED: POTASSIUM EFFERVESENT TAB 25 MEQ PO ONE (11:30)
[2022-08-28 13:00] VITALS: BP 120/69
[2022-08-28 14:09] VITALS: BP 130/76
[2022-08-28 14:12] VITALS: BP 129/65
== END 2022-08-28 16:44 | disposition home or self-care (01) | DRG 871 ==
LOC: ER 16:31 → TELE 08-06 04:32 → TELE-CENTR 08-07 05:00 → ICU WEST 08-10 01:26 → TELE-WESTW 08-10 19:07
PROVIDERS: ADMIT Nurse Practitioner Family; ATTEND Student in an Organized Health Care Education/Training Program
PROC: 30233N1 Transfusion of Nonautologous Red Blood Cells into Peripheral Vein, Percutaneous Approach (ICD-10-PCS; principal; 2022-08-09 19:56)
PROC: 02HV33Z Insertion of Infusion Device into Superior Vena Cava, Percutaneous Approach (ICD-10-PCS; 2022-08-22)
PROC: B548ZZA Ultrasonography of Superior Vena Cava, Guidance (ICD-10-PCS; 2022-08-22)
PROC: 0W9L30Z Drainage of Lower Back with Drainage Device, Percutaneous Approach (ICD-10-PCS; 2022-08-24)
DX: A41.9 Sepsis, unspecified organism (principal); E11.10 Type 2 diabetes mellitus with ketoacidosis without coma; G93.41 Metabolic encephalopathy; E43 Unspecified severe protein-calorie malnutrition; N17.9 Acute kidney failure, unspecified; N39.0 Urinary tract infection, site not specified; G82.20 Paraplegia, unspecified; I16.0 Hypertensive urgency; D63.1 Anemia in chronic kidney disease; E88.09 Other disorders of plasma-protein metabolism, not elsewhere classified; E87.6 Hypokalemia; E86.0 Dehydration; D75.839 Thrombocytosis, unspecified; N18.31 Chronic kidney disease, stage 3a; I12.9 Hypertensive chronic kidney disease with stage 1 through stage 4 chronic kidney disease, or unspecified chronic kidney disease; E11.22 Type 2 diabetes mellitus with diabetic chronic kidney disease; E11.40 Type 2 diabetes mellitus with diabetic neuropathy, unspecified; Z20.822 Contact with and (suspected) exposure to COVID-19; E83.42 Hypomagnesemia; K59.00 Constipation, unspecified; Z79.4 Long term (current) use of insulin; Z81.8 Family history of other mental and behavioral disorders; Z91.14 Patient's other noncompliance with medication regimen; Z83.3 Family history of diabetes mellitus; Z86.718 Personal history of other venous thrombosis and embolism; Z86.61 Personal history of infections of the central nervous system; Z68.28 Body mass index [BMI] 28.0-28.9, adult
CPT/HCPCS: 36415; 36569; 36600; 71045; 71275; 72100; 72131; 72148; 72158; 75989; 76000; 76775; 80048; 80053; 80202; 80307; 80320; 81001; 81003; 82010; 82306; 82550; 82570; 82607; 82728; 82805; 82962; 83036; 83540; 83550; 83690; 83735; 83930; 83970; 83986; 84100; 84156; 84300; 84443; 84484; 85025; 85610; 85730; 86850; 86900; 86901; 86920; 87040; 87070; 87075; 87077; 87081; 87086; 87088; 87186; 87205; 87426; 87493; 89051; 93005; 93306; 93970; 96365; 96366; 96367; 96368; 96372; 96375; 97110; 97116; 97163; 97530; 99291; C1729; G0378; J0690; J0696; J1100; J1815; J2001; J2250; J2405; J2543; J2704; J3480; J3490; J7060; P9047

== ENCOUNTER 2022-09-05 11:31 | Emergency (ER) | payer OTHER ==
[~2022-09-05] VITALS: Ht 162.6 cm; Wt 80.0 kg
[~2022-09-05 11:31] MED LIST: ACET325T10 PO; GAB100C PO; INSLANTI SC; LOS25T PO; MET25T PO; METH500T22 PO; POLY33504 PO; RIVA1TAB PO; SENN-83 PO; [UNRECOGNIZED DRUG - CODE] PO
[2022-09-05 12:09] VITALS: BP 139/76
[2022-09-05 13:12] LABS: Urine Bacteria NONE SEEN /hpf (None Seen); Urine Blood TRACE /uL (Negative); Urine Specific Gravity 1.017 (1.001-1.035); Urine WBC 115 /hpf (0 - 5)
== END 2022-09-05 12:49 | disposition home or self-care (01) ==
LOC: ER 11:31
DX: F12.10 Cannabis abuse, uncomplicated (principal); E11.9 Type 2 diabetes mellitus without complications; Z46.6 Encounter for fitting and adjustment of urinary device
CPT/HCPCS: 51702; 81001

== ENCOUNTER → 2022-09-14 | Outpatient (CLI) | payer OTHER ==
[2022-09-14 10:27] LABS: Basophils # (auto) 0.1 10 ^3/uL (0-0.2); Basophils % (auto) 1.1 % (0.0-2.0); Eosinophils # (auto) 0.2 10 ^3/uL (0-0.8); Eosinophils % (auto) 3.3 % (0.0-7.0); Hematocrit 35.5 % (36.0-46.0); Hemoglobin 11.8 g/dL (12.2-16.2); Lymphocytes # (auto) 0.9 10 ^3/uL (0.4-5.4); Lymphocytes % (auto) 12.8 % (10.0-50.0); Mean Corpuscular Hgb Conc. 33.2 g/dL (32.0-36.0); Mean Corpuscular Volume 81.4 fL (80.0-100.0); Monocytes # (auto) 0.4 10 ^3/uL (0-1.3); Monocytes % (auto) 5.4 % (0.0-12.0); Neutrophils # (auto) 5.3 10 ^3/uL (1.6-8.6); Neutrophils % (auto) 77.4 % (37.0-80.0); Nucleated Red Blood Cells % 0.1 %; Red Blood Cells 4.36 10^6/uL (4.0-5.20); White Blood Cell 6.8 10^3/uL (4.4-10.8)
[2022-09-14 10:39] LABS: Red Cell Distribution Width 29.1 % (11.8-14.3)
[2022-09-14 11:01] LABS: Albumin 2.1 g/dL (3.4-5.0); Calcium 9.5 mg/dL (8.5-10.1); Potassium 3.9 mmol/L (3.5-5.1)
[2022-09-14 11:05] LABS: BUN/Creatinine Ratio 28.2 (10.0-20.0); Bilirubin, Total 0.7 mg/dL (0.2-1.0); Total Protein 6.4 g/dL (6.4-8.2)
== END | disposition home or self-care (01) ==
LOC: LAB 10:12
PROVIDERS: ATTEND Student in an Organized Health Care Education/Training Program
DX: A41.9 Sepsis, unspecified organism (principal)
CPT/HCPCS: 36415; 80053; 85025; 85652

== ENCOUNTER → 2022-09-19 | Outpatient (CLI) | payer OTHER ==
[2022-09-19 12:40] LABS: Basophils # (auto) 0 10 ^3/uL (0-0.2); Basophils % (auto) 1.1 % (0.0-2.0); Eosinophils # (auto) 0.3 10 ^3/uL (0-0.8); Hematocrit 32.4 % (36.0-46.0); Lymphocytes # (auto) 0.7 10 ^3/uL (0.4-5.4); Lymphocytes % (auto) 15.8 % (10.0-50.0); Mean Corpuscular Hemoglobin 27.3 pg (28.0-32.0); Mean Corpuscular Hgb Conc. 33.8 g/dL (32.0-36.0); Mean Corpuscular Volume 80.6 fL (80.0-100.0); Monocytes # (auto) 0.3 10 ^3/uL (0-1.3); Monocytes % (auto) 5.7 % (0.0-12.0); Neutrophils # (auto) 3.2 10 ^3/uL (1.6-8.6); Neutrophils % (auto) 70.4 % (37.0-80.0); Nucleated Red Blood Cells % 0.2 %; Red Blood Cells 4.02 10^6/uL (4.0-5.20); White Blood Cell 4.6 10^3/uL (4.4-10.8)
[2022-09-19 12:51] LABS: Red Cell Distribution Width 27.8 % (11.8-14.3)
[2022-09-19 13:01] LABS: Calcium 9.1 mg/dL (8.5-10.1); Potassium 4.1 mmol/L (3.5-5.1)
[2022-09-19 13:06] LABS: Bilirubin, Total 0.6 mg/dL (0.2-1.0); Total Protein 5.6 g/dL (6.4-8.2)
== END | disposition home or self-care (01) ==
LOC: LAB 12:29
PROVIDERS: ATTEND Student in an Organized Health Care Education/Training Program
DX: A41.9 Sepsis, unspecified organism (principal)
CPT/HCPCS: 36415; 80053; 85025; 85652

== ENCOUNTER → 2022-09-25 | Outpatient (CLI) | payer OTHER ==
[2022-09-25 13:22] LABS: Basophils # (auto) 0 10 ^3/uL (0-0.2); Basophils % (auto) 0.6 % (0.0-2.0); Eosinophils # (auto) 0.2 10 ^3/uL (0-0.8); Eosinophils % (auto) 4.6 % (0.0-7.0); Hematocrit 34.9 % (36.0-46.0); Hemoglobin 12.3 g/dL (12.2-16.2); Lymphocytes % (auto) 17.7 % (10.0-50.0); Mean Corpuscular Hemoglobin 28.5 pg (28.0-32.0); Mean Corpuscular Hgb Conc. 35.2 g/dL (32.0-36.0); Mean Corpuscular Volume 80.9 fL (80.0-100.0); Monocytes # (auto) 0.4 10 ^3/uL (0-1.3); Monocytes % (auto) 6.9 % (0.0-12.0); Neutrophils # (auto) 3.8 10 ^3/uL (1.6-8.6); Neutrophils % (auto) 70.2 % (37.0-80.0); Nucleated Red Blood Cells % 0.1 %; Red Blood Cells 4.31 10^6/uL (4.0-5.20); Red Cell Distribution Width 24.8 % (11.8-14.3); White Blood Cell 5.4 10^3/uL (4.4-10.8)
[2022-09-25 13:37] LABS: Urine Bacteria FEW /hpf (None Seen); Urine Blood Negative /uL (Negative); Urine Hyaline Cast FEW /lpf (0 - 2); Urine Specific Gravity 1.011 (1.001-1.035); Urine WBC 10 /hpf (0 - 5)
[2022-09-25 13:54] LABS: Albumin 2.3 g/dL (3.4-5.0); Calcium 10.3 mg/dL (8.5-10.1); Potassium 4.4 mmol/L (3.5-5.1)
[2022-09-25 14:01] LABS: Free T3 2.91 pg/mL (2.3-4.2); Free T4 (Free Thyroxine) 1.02 ng/dL (0.89-1.76)
[2022-09-25 14:02] LABS: Bilirubin, Total 0.5 mg/dL (0.2-1.0); CRP High Sensitivity 2.27 mg/dL (< 0.3); Total Protein 6.8 g/dL (6.4-8.2)
[2022-09-25 15:22] LABS: BUN/Creatinine Ratio 46.5 (10.0-20.0)
== END | disposition home or self-care (01) ==
LOC: LAB 13:02
PROVIDERS: ATTEND Internal Medicine
DX: I10 Essential (primary) hypertension (principal); E11.42 Type 2 diabetes mellitus with diabetic polyneuropathy; D72.819 Decreased white blood cell count, unspecified; Z86.718 Personal history of other venous thrombosis and embolism
CPT/HCPCS: 36415; 80053; 81001; 82043; 83036; 84439; 84443; 84481; 85025; 85652; 86141

== ENCOUNTER 2022-09-29 19:12 | Emergency (ER) | payer OTHER ==
[~2022-09-29] VITALS: Ht 162.6 cm; Wt 70.5 kg
[2022-09-29 20:30] LABS: Urine Bacteria NONE SEEN /hpf (None Seen); Urine Blood Negative /uL (Negative); Urine WBC 11 /hpf (0 - 5)
[2022-09-29 21:21] VITALS: BP 150/90
== END 2022-09-29 21:21 | disposition home or self-care (01) ==
LOC: ER 19:12
DX: T83.031A Leakage of indwelling urethral catheter, initial encounter (principal); I10 Essential (primary) hypertension; E11.9 Type 2 diabetes mellitus without complications; Z79.4 Long term (current) use of insulin; Z79.899 Other long term (current) drug therapy
CPT/HCPCS: 51702; 81001

== ENCOUNTER → 2022-10-09 | Outpatient (CLI) | payer OTHER ==
[2022-10-09 12:02] LABS: Basophils # (auto) 0 10 ^3/uL (0-0.2); Basophils % (auto) 0.7 % (0.0-2.0); Eosinophils # (auto) 0.5 10 ^3/uL (0-0.8); Eosinophils % (auto) 10.2 % (0.0-7.0); Hematocrit 33.3 % (36.0-46.0); Hemoglobin 11.5 g/dL (12.2-16.2); Lymphocytes % (auto) 20.8 % (10.0-50.0); Mean Corpuscular Hemoglobin 28.6 pg (28.0-32.0); Mean Corpuscular Hgb Conc. 34.5 g/dL (32.0-36.0); Mean Corpuscular Volume 82.7 fL (80.0-100.0); Monocytes # (auto) 0.3 10 ^3/uL (0-1.3); Monocytes % (auto) 6.7 % (0.0-12.0); Neutrophils # (auto) 2.9 10 ^3/uL (1.6-8.6); Neutrophils % (auto) 61.6 % (37.0-80.0); Nucleated Red Blood Cells % 0.3 %; Red Blood Cells 4.03 10^6/uL (4.0-5.20); Red Cell Distribution Width 18.6 % (11.8-14.3); White Blood Cell 4.7 10^3/uL (4.4-10.8)
[2022-10-09 13:16] LABS: Albumin 2.6 g/dL (3.4-5.0); Calcium 9.6 mg/dL (8.5-10.1); Potassium 4.1 mmol/L (3.5-5.1)
[2022-10-09 13:34] LABS: BUN/Creatinine Ratio 48.1 (10.0-20.0); Bilirubin, Total 0.4 mg/dL (0.2-1.0); CRP High Sensitivity 1.22 mg/dL (< 0.3); Total Protein 6.5 g/dL (6.4-8.2)
== END | disposition home or self-care (01) ==
LOC: LAB 11:40
PROVIDERS: ATTEND Student in an Organized Health Care Education/Training Program
DX: A41.9 Sepsis, unspecified organism (principal)
CPT/HCPCS: 36415; 80053; 85025; 85652; 86141

== ENCOUNTER 2022-10-12 13:01 | Emergency (ER) | payer OTHER ==
[~2022-10-12] VITALS: Ht 162.6 cm; Wt 68.0 kg
[2022-10-12 14:32] VITALS: BP 137/74
[2022-10-12 14:40] LABS: Urine Bacteria FEW /hpf (None Seen); Urine Blood 3+ /uL (Negative); Urine Budding Yeast FEW /hpf (None Seen); Urine Specific Gravity 1.013 (1.001-1.035); Urine WBC 76 /hpf (0 - 5)
[2022-10-12] MEDS ORDERED: BACDST PO (15:18)
== END 2022-10-12 15:36 | disposition home or self-care (01) ==
LOC: ER 13:01
DX: T83.031A Leakage of indwelling urethral catheter, initial encounter (principal); N39.0 Urinary tract infection, site not specified; I10 Essential (primary) hypertension; E11.9 Type 2 diabetes mellitus without complications; Z79.4 Long term (current) use of insulin; Z79.899 Other long term (current) drug therapy
CPT/HCPCS: 81001; 87086; 87088; 87186

== ENCOUNTER 2022-11-08 07:09 | Emergency (ER) | payer OTHER ==
[~2022-11-08] VITALS: Ht 162.6 cm; Wt 80.0 kg
[~2022-11-08 07:09] MED LIST changes: +BACDST PO
[2022-11-08 08:37] VITALS: BP 156/73
[2022-11-08 09:14] LABS: Basophils # (auto) 0 10 ^3/uL (0-0.2); Basophils % (auto) 0.6 % (0.0-2.0); Eosinophils # (auto) 0.2 10 ^3/uL (0-0.8); Eosinophils % (auto) 5.1 % (0.0-7.0); Hematocrit 35.8 % (36.0-46.0); Lymphocytes # (auto) 0.8 10 ^3/uL (0.4-5.4); Lymphocytes % (auto) 17.3 % (10.0-50.0); Mean Corpuscular Hemoglobin 27.8 pg (28.0-32.0); Mean Corpuscular Hgb Conc. 33.6 g/dL (32.0-36.0); Mean Corpuscular Volume 82.9 fL (80.0-100.0); Monocytes # (auto) 0.4 10 ^3/uL (0-1.3); Monocytes % (auto) 8.8 % (0.0-12.0); Neutrophils # (auto) 3.3 10 ^3/uL (1.6-8.6); Neutrophils % (auto) 68.2 % (37.0-80.0); Nucleated Red Blood Cells % 0.1 %; Red Blood Cells 4.32 10^6/uL (4.0-5.20); Red Cell Distribution Width 14.3 % (11.8-14.3); White Blood Cell 4.8 10^3/uL (4.4-10.8)
[2022-11-08 09:46] LABS: Urine Bacteria FEW /hpf (None Seen); Urine Blood 3+ /uL (Negative); Urine Specific Gravity 1.006 (1.001-1.035); Urine WBC 40 /hpf (0 - 5); Urine WBC Clumps PRESENT /hpf (None Seen)
[2022-11-08 09:46] LABS: Potassium 3.9 mmol/L (3.5-5.1)
[2022-11-08 09:47] LABS: Albumin 2.7 g/dL (3.4-5.0)
[2022-11-08 09:49] LABS: BUN/Creatinine Ratio 70.8 (10.0-20.0); Bilirubin, Total 0.2 mg/dL (0.2-1.0); Total Protein 6.7 g/dL (6.4-8.2)
== END 2022-11-08 10:34 | disposition home or self-care (01) ==
LOC: ER 07:09
DX: T83.9XXA Unspecified complication of genitourinary prosthetic device, implant and graft, initial encounter (principal); E86.0 Dehydration; E11.9 Type 2 diabetes mellitus without complications; I10 Essential (primary) hypertension; F12.10 Cannabis abuse, uncomplicated
CPT/HCPCS: 36415; 51702; 80053; 81001; 85025; 87086; 87088; 87186

== ENCOUNTER → 2022-11-20 | Outpatient (CLI) | payer OTHER ==
[~2022-11-20] MED LIST changes: +ACET-1882 PO; -ACET325T10 PO; +METH-1181 PO; -METH500T22 PO; +SENN-105 PO; -SENN-83 PO
[2022-11-20 10:36] LABS: Cholesterol 181 mg/dL (< 200); HDL Cholesterol 52 mg/dL (40-59); LDL Cholesterol 119 mg/dL (< 100); Triglycerides 77 mg/dL (< 150)
== END | disposition home or self-care (01) ==
LOC: LAB 08:34
PROVIDERS: ATTEND Internal Medicine
DX: E11.9 Type 2 diabetes mellitus without complications (principal)
CPT/HCPCS: 36415; 80061

== ENCOUNTER → 2023-01-01 | Outpatient (CLI) | payer OTHER ==
[2023-01-01 08:11] LABS: Potassium 4.2 mmol/L (3.5-5.1)
[2023-01-01 08:14] LABS: BUN/Creatinine Ratio 49.5 (10.0-20.0)
== END | disposition home or self-care (01) ==
LOC: LAB 06:46
PROVIDERS: ATTEND Internal Medicine
DX: E11.9 Type 2 diabetes mellitus without complications (principal)
CPT/HCPCS: 36415; 80048

== ENCOUNTER 2023-01-31 07:20 | Day surgery (SDC) | payer OTHER ==
[2023-01-28 15:39] LABS: Basophils # (auto) 0 10 ^3/uL (0-0.2); Basophils % (auto) 0.6 % (0.0-2.0); Eosinophils # (auto) 0.2 10 ^3/uL (0-0.8); Eosinophils % (auto) 2.5 % (0.0-7.0); Hematocrit 43.1 % (36.0-46.0); Hemoglobin 14.4 g/dL (12.2-16.2); Lymphocytes # (auto) 1.3 10 ^3/uL (0.4-5.4); Lymphocytes % (auto) 18.4 % (10.0-50.0); Mean Corpuscular Hemoglobin 27.5 pg (28.0-32.0); Mean Corpuscular Hgb Conc. 33.4 g/dL (32.0-36.0); Mean Corpuscular Volume 82.3 fL (80.0-100.0); Monocytes # (auto) 0.5 10 ^3/uL (0-1.3); Monocytes % (auto) 6.8 % (0.0-12.0); Neutrophils # (auto) 5.1 10 ^3/uL (1.6-8.6); Neutrophils % (auto) 71.7 % (37.0-80.0); Nucleated Red Blood Cells % 0.1 %; Red Blood Cells 5.23 10^6/uL (4.0-5.20); Red Cell Distribution Width 17.2 % (11.8-14.3); White Blood Cell 7.1 10^3/uL (4.4-10.8)
[2023-01-28 15:56] LABS: INR 0.99 (0.9-1.15); Partial Thromboplastin Time 28.6 SEC (24.5-34.5); Prothrombin Time 10.4 sec (9.3-11.8)
[2023-01-28 15:57] LABS: Urine Bacteria NONE SEEN /hpf (None Seen); Urine Blood Negative /uL (Negative); Urine Clarity HAZY (Clear); Urine Color Colorless (Yellow); Urine Protein, UAD 2+ (Negative); Urine Specific Gravity 1.017 (1.001-1.035); Urine Urobilinogen Normal (Negative); Urine WBC 7 /hpf (0 - 5); Urine pH 6.5 (5.0-8.0)
[2023-01-28 16:30] LABS: Potassium 4.7 mmol/L (3.5-5.1)
[2023-01-28 16:35] LABS: Albumin 3.6 g/dL (3.4-5.0); Bilirubin, Total 0.3 mg/dL (0.2-1.0); Calcium 10.9 mg/dL (8.5-10.1); Total Protein 8.1 g/dL (6.4-8.2)
[~2023-01-31] VITALS: Ht 162.6 cm; Wt 75.3 kg
[~2023-01-31 07:20] MED LIST changes: -BACDST PO; +DAPA1TAB4 PO; -MET25T PO; +RIV15T PO
[2023-01-31] MEDS ORDERED: DexAMETHasone SOD PHOS 10MG/1ML VIAL INJ ONE (10:22)
[2023-01-31] MEDS ORDERED: LIDOCAINE 2% (LOCAL ANESTH.) PF 5ml SDV ONE (10:22)
[2023-01-31] MEDS ORDERED: PROPOFOL 10 MG/ML 20 ML IV ONE (10:22)
[2023-01-31] MEDS ORDERED: ONDANSETRON HCL 4 MG/2 ML VIAL ONE (10:22)
[2023-01-31] MEDS ORDERED: GLYCOPYRROLATE 0.2 MG/ML 1ML VIAL ONE (10:22)
[2023-01-31] MEDS ORDERED: KETOROLAC TROMETH 30 MG/ML 1ML VIAL ONE (10:22)
[2023-01-31] MEDS ORDERED: CIPROFLOXACIN 400MG/200ML 200 ML IV ONE (10:24)
[2023-01-31] MEDS ORDERED: ePHEDrine SULFATE 50 MG/ML AMP ONE (11:16)
[2023-01-31] MEDS ORDERED: LIDOCAINE W/ EPINEPHRINE 1% 20ML VIAL ONE (11:30)
[2023-01-31 11:50] VITALS: PULSE 77; RESP 22; O2SAT 97
[2023-01-31 12:35] VITALS: BP 123/68; PULSE 94; RESP 15; O2SAT 96
== END 2023-01-31 12:50 | disposition home or self-care (01) ==
LOC: SUR 07:20
PROVIDERS: ATTEND Urology
DX: N31.9 Neuromuscular dysfunction of bladder, unspecified (principal); E11.9 Type 2 diabetes mellitus without complications; I10 Essential (primary) hypertension; Z79.4 Long term (current) use of insulin; Z79.899 Other long term (current) drug therapy; Z98.890 Other specified postprocedural states
CPT/HCPCS: 36415; 51040; 80053; 81001; 82962; 85025; 85610; 85730; 87086; J0744; J1100; J1885; J2001; J2405; J2704

== ENCOUNTER → 2023-02-27 | Outpatient (CLI) | payer OTHER ==
[2023-02-27 13:37] LABS: Creatinine, Urine 15.32 mg/dL (30.0-125.0)
[2023-02-27 13:40] LABS: Alanine Aminotransferase 22 U/L (7-40); Albumin 4.1 g/dL (3.2-4.8); Alkaline Phosphatase 93 U/L (46-116); Anion Gap 3.4 (5-15); Aspartate Aminotransferase 12 U/L (13-40); Bilirubin, Total 0.4 mg/dL (0.2-1.0); Blood Urea Nitrogen 48 mg/dL (9-23); Calcium 10.6 mg/dL (8.5-10.1); Carbon Dioxide 25.6 mmol/L (20-30); Chloride 108 mmol/L (98-107); Glucose 159 mg/dL (74-106); Potassium 5.1 mmol/L (3.5-5.1); Sodium 137 mmol/L (136-145); Total Protein 7.1 g/dL (5.7-8.2)
== END | disposition home or self-care (01) ==
LOC: LAB 12:57
PROVIDERS: ATTEND Internal Medicine
DX: E11.9 Type 2 diabetes mellitus without complications (principal)
CPT/HCPCS: 36415; 80053; 82043; 82570

== ENCOUNTER → 2023-04-16 | Outpatient (CLI) | payer OTHER ==
[2023-04-16 12:18] LABS: Anion Gap 4 (5-15); Calcium 10.5 mg/dL (8.5-10.1); Carbon Dioxide 28 mmol/L (20-30); Chloride 108 mmol/L (98-107); Potassium 4.9 mmol/L (3.5-5.1); Sodium 140 mmol/L (136-145)
[2023-04-16 12:24] LABS: BUN/Creatinine Ratio 36.4 (10.0-20.0); Blood Urea Nitrogen 39 mg/dL (9-23); Glucose 120 mg/dL (74-106)
== END | disposition home or self-care (01) ==
LOC: LAB 11:30
PROVIDERS: ATTEND Internal Medicine
DX: E11.9 Type 2 diabetes mellitus without complications (principal)
CPT/HCPCS: 36415; 80048

== ENCOUNTER → 2023-06-12 | Outpatient (CLI) | payer OTHER ==
[2023-06-12 13:54] LABS: Chloride 106 mmol/L (98-107); Potassium 4.8 mmol/L (3.5-5.1); Sodium 139 mmol/L (136-145)
[2023-06-12 13:55] LABS: Anion Gap 7 (5-15); Carbon Dioxide 26 mmol/L (20-30)
[2023-06-12 13:56] LABS: Calcium 10.1 mg/dL (8.5-10.1)
[2023-06-12 14:00] LABS: BUN/Creatinine Ratio 28.7 (10.0-20.0); Blood Urea Nitrogen 31 mg/dL (9-23); Creatinine, Urine 28.61 mg/dL (30.0-125.0); Glucose 119 mg/dL (74-106)
== END | disposition home or self-care (01) ==
LOC: LAB 13:27
PROVIDERS: ATTEND Internal Medicine
DX: E11.8 Type 2 diabetes mellitus with unspecified complications (principal)
CPT/HCPCS: 36415; 80048; 82043; 82570; 83036

== ENCOUNTER → 2023-08-14 | Outpatient (CLI) | payer OTHER ==
[2023-08-14 13:05] LABS: Chloride 107 mmol/L (98-107); Potassium 4.7 mmol/L (3.5-5.1); Sodium 140 mmol/L (136-145)
[2023-08-14 13:06] LABS: Anion Gap 7 (5-15); Calcium 10.3 mg/dL (8.5-10.1); Carbon Dioxide 26 mmol/L (20-30)
[2023-08-14 13:11] LABS: BUN/Creatinine Ratio 29.5 (10.0-20.0); Blood Urea Nitrogen 31 mg/dL (9-23); Glucose 139 mg/dL (74-106)
[2023-08-14 13:33] LABS: Creatinine, Urine 19.61 mg/dL (30.0-125.0)
== END | disposition home or self-care (01) ==
LOC: LAB 12:05
PROVIDERS: ATTEND Internal Medicine
DX: E11.9 Type 2 diabetes mellitus without complications (principal)
CPT/HCPCS: 36415; 80048; 82043; 82570

== ENCOUNTER → 2024-02-10 | Outpatient (CLI) | payer OTHER ==
[2024-02-10 16:20] LABS: Chloride 110 mmol/L (98-107); Potassium 4.4 mmol/L (3.5-5.1); Sodium 139 mmol/L (136-145)
[2024-02-10 16:21] LABS: Anion Gap 5 (5-15); Calcium 10.9 mg/dL (8.7-10.4); Carbon Dioxide 24 mmol/L (20-30)
[2024-02-10 16:25] LABS: Creatinine, Urine 27.56 mg/dL (30.0-125.0)
[2024-02-10 16:26] LABS: BUN/Creatinine Ratio 32.5 (10.0-20.0); Blood Urea Nitrogen 39 mg/dL (9-23); Glucose 108 mg/dL (74-106)
== END | disposition home or self-care (01) ==
LOC: LAB 15:39
PROVIDERS: ATTEND Internal Medicine
DX: E04.1 Nontoxic single thyroid nodule (principal); E11.40 Type 2 diabetes mellitus with diabetic neuropathy, unspecified
CPT/HCPCS: 36415; 80048; 82043; 82306; 82570; 83036; 83970; 84443

== ENCOUNTER → 2024-03-16 | Outpatient (CLI) | payer OTHER ==
[2024-03-16 16:34] LABS: Calcium 10.5 mg/dL (8.7-10.4)
[2024-03-16 16:45] LABS: Free T3 2.87 pg/mL (2.3-4.2); Free T4 (Free Thyroxine) 1.21 ng/dL (0.89-1.76)
== END | disposition home or self-care (01) ==
LOC: LAB 15:32
PROVIDERS: ATTEND Internal Medicine
DX: E11.22 Type 2 diabetes mellitus with diabetic chronic kidney disease (principal); N18.31 Chronic kidney disease, stage 3a; E55.9 Vitamin D deficiency, unspecified; E04.1 Nontoxic single thyroid nodule
CPT/HCPCS: 36415; 82150; 82306; 82310; 83690; 84439; 84443; 84481

== ENCOUNTER → 2024-08-04 | Outpatient (CLI) | payer OTHER ==
[2024-08-04 16:34] LABS: Sodium 140 mmol/L (136-145)
[2024-08-04 16:35] LABS: Anion Gap 4 (5-15); Carbon Dioxide 28 mmol/L (20-31)
[2024-08-04 16:41] LABS: BUN/Creatinine Ratio 24.8 (10.0-20.0)
[2024-08-04 16:49] LABS: Chloride 108 mmol/L (98-107); Potassium 5.2 mmol/L (3.5-5.1)
[2024-08-04 16:50] LABS: Blood Urea Nitrogen 27 mg/dL (9-23); Calcium 10.8 mg/dL (8.7-10.4); Glucose 107 mg/dL (74-106)
[2024-08-05 12:20] LABS: Creatinine, Urine 37.75 mg/dL (30.0-125.0)
== END | disposition home or self-care (01) ==
LOC: LAB 15:47
PROVIDERS: ATTEND Internal Medicine
DX: E11.22 Type 2 diabetes mellitus with diabetic chronic kidney disease (principal); N18.30 Chronic kidney disease, stage 3 unspecified; E55.9 Vitamin D deficiency, unspecified
CPT/HCPCS: 36415; 80048; 82043; 82570; 83036

== ENCOUNTER 2024-11-25 09:20 | Outpatient (CLI) | payer OTHER ==
[2024-11-25 10:23] LABS: Alanine Aminotransferase 21 U/L (7-40); Albumin 4.4 g/dL (3.2-4.8); Alkaline Phosphatase 84 U/L (46-116); Anion Gap 7 (5-15); Aspartate Aminotransferase 17 U/L (13-40); BUN/Creatinine Ratio 34.7 (10.0-20.0); Carbon Dioxide 26 mmol/L (20-31); HDL Cholesterol 41 mg/dL (40-59); Potassium 4.7 mmol/L (3.5-5.1); Sodium 142 mmol/L (136-145); Total Protein 7.5 g/dL (5.7-8.2)
[2024-11-25 10:24] LABS: Blood Urea Nitrogen 41 mg/dL (9-23); Calcium 10.8 mg/dL (8.7-10.4); Chloride 109 mmol/L (98-107); Cholesterol 255 mg/dL (< 200); Glucose 163 mg/dL (74-106); LDL Cholesterol 190 mg/dL (< 100); Triglycerides 172 mg/dL (< 150)
== END 2024-11-25 17:00 | disposition home or self-care (01) ==
LOC: LAB 09:20
PROVIDERS: ATTEND Internal Medicine
DX: I10 Essential (primary) hypertension (principal); E11.9 Type 2 diabetes mellitus without complications; Z12.11 Encounter for screening for malignant neoplasm of colon
CPT/HCPCS: 36415; 80053; 80061; 83036; 83970

== ENCOUNTER 2024-12-03 15:34 | Outpatient (CLI) | payer OTHER ==
[2024-12-03 15:58] LABS: Chloride 105 mmol/L (98-107); Potassium 4.5 mmol/L (3.5-5.1); Sodium 141 mmol/L (136-145)
[2024-12-03 15:59] LABS: Anion Gap 10 (5-15); Carbon Dioxide 26 mmol/L (20-31)
[2024-12-03 16:04] LABS: BUN/Creatinine Ratio 40.3 (10.0-20.0); Blood Urea Nitrogen 54 mg/dL (9-23); Calcium 11.9 mg/dL (8.7-10.4); Glucose 156 mg/dL (74-106)
[2024-12-03 16:05] LABS: CRP High Sensitivity 0.41 mg/dL (<1.0)
[2024-12-03 16:14] LABS: Erythrocyte Sedimentation Rate 23 mm/hr (0-20)
== END 2024-12-03 17:00 | disposition home or self-care (01) ==
LOC: LAB 15:34
PROVIDERS: ATTEND Internal Medicine
DX: N18.31 Chronic kidney disease, stage 3a (principal); M25.551 Pain in right hip
CPT/HCPCS: 36415; 80048; 85652; 86141

== ENCOUNTER 2025-02-01 15:35 | Outpatient (CLI) | payer OTHER ==
[2025-02-01 16:16] LABS: Alanine Aminotransferase 20 U/L (7-40); Albumin 4.5 g/dL (3.2-4.8); Alkaline Phosphatase 82 U/L (46-116); Bilirubin, Total 0.4 mg/dL (0.2-1.0); Creatine Kinase IFCC 157 U/L (34-145); Total Protein 7.3 g/dL (5.7-8.2)
[2025-02-01 16:17] LABS: Bilirubin, Direct < 0.1 mg/dL (<0.3)
== END 2025-02-01 17:00 | disposition home or self-care (01) ==
LOC: LAB 15:35
PROVIDERS: ATTEND Internal Medicine
DX: E78.5 Hyperlipidemia, unspecified (principal)
CPT/HCPCS: 36415; 80076; 82550